=== PATIENT | female | born 1950 | race Caucasian/White ===

== ENCOUNTER 2023-06-23 22:33 | Inpatient (IN) | payer OTHER, SELFPAY ==
[2023-06-23 17:36] VITALS: BP 163/55
[2023-06-23 18:28] VITALS: BMI 29.7
[2023-06-23 18:31] VITALS: BP 153/45
[2023-06-23 18:42] LABS: % Eosinophils 3.3 % (0-6); % Immature Granulocytes 0.2 % (0-0.5); % Lymphocytes 26.3 % (20.5-51.1); % Monocytes 9.4 % (1.7-9.3); % Neutrophils 59.8 % (42.2-75.2); Absolute Basophils 0.1 10^3/uL (0-0.2); Absolute Eosinophils 0.2 10^3/uL (0-0.7); Absolute Lymphocytes 1.3 10^3/uL (1.2-3.4); Absolute Monocytes 0.5 10^3/uL (0.1-0.6); Absolute Neutrophils 2.9 10^3/uL (1.4-6.5); Hematocrit 25.6 % (37.0-47.0); Hemoglobin 7.2 g/dL (12.0-16.0); Mean Corp Hgb Conc. 28.1 g/dL (33.0-37.0); Mean Corpuscular Hgb 22.2 pg (27.0-31.0); Mean Platelet Volume 11.2 fL (7.4-10.4); Nucleated Red Blood Cells % 0 %; Platelet Count 200 10^3/uL (130-400); Red Blood Cell Count 3.24 10^6/uL (4.20-5.40); Red Cell Dist. Width 21.8 % (11.5-14.5); White Blood Cell Count 4.8 10^3/uL (4.8-10.8)
[2023-06-23 18:58] LABS: ALT (SGPT) 13 U/L (0-35); AST (SGOT) 40 U/L (14-36); Albumin 3.7 g/dl (3.5-5.0); Alkaline Phosphatase 60 U/L (38-126); Blood Urea Nitrogen 17 mg/dl (7-17); Calcium 9.5 mg/dl (8.4-10.2); Carbon Dioxide 26 mmol/L (22-30); Chloride 106 mmol/L (98-107); Estimated Creatinine Clearance 39 ml/min; Glucose 121 mg/dl (70-99); Potassium 4.4 mmol/L (3.5-5.1); Sodium 140 mmol/L (135-145); Total Bilirubin 0.3 mg/dl (0.2-1.3); eGFR 59.12
[2023-06-23 19:53] VITALS: BP 146/59
[2023-06-23 19:58] LABS: Normal RBC Morphology No
[2023-06-23 19:59] LABS: Anisocytosis 2+; Hypochromasia 3+; Macrocytosis 1+; Stomatocytes 2+
[2023-06-23 20:23] LABS: Iron 43 ug/dl (37-170)
[2023-06-23 20:31] LABS: Percent Saturation 13 % (20-50); Total Iron Binding Capacity 323 ug/dl (265-497)
[2023-06-23 20:58] LABS: Ferritin 6.2 ng/ml (11.1-264.0)
--- NOTE | 2023-06-23 21:05 | ED.GENMED ---
History of Present Illness
General
Chief Complaint: Abnormal Lab Value
Source: patient and family
Exam Limitations: other (speech impairment from previous CVA)
Time Seen by Provider: 06/23/23 19:11
Nursing documentation reviewed up to this point in time: agreed with
Travel History
Have you had any contact with someone who has COVID-19?: No
Do you have any symptoms of coronavirus? Fever > 100 degrees, chills, cough, shortness of breath, sore throat, loss of taste or smell, muscle aches, or headache?: No
History of Present Illness
History of Present Illness:
Patient with history of CVA with residual speech impairment and right-sided paralysis, presents to ED after an outpatient blood work revealed recurrent anemia. Otherwise, per family, patient has been behaving normally and they have not noticed any
big changes. However, daughter has noticed 'dark stool'. Denies recent change in medications or diet. Denies recent illness. Patient has had history of anemia requiring transfusion in the past.
Past History
Past History
ED Past Medical History: CVA (with right sided weakness and Expressive Aphasia), HTN, Hypercholesterolemia and NIDDM
ED Past Surgical History: Cardiac (Stents X 3) and (X 4)
Social History
Tobacco: Former smoker
Alcohol: None
Personal:
Living: with family
Review of Systems
Review of Systems
Allergies reviewed?: Yes
Unable to obtain full review of systems at this time due to: non-verbal
All Other Systems: Not applicable
Phy Exam
Physical Exam
Physical Exam:
Physical Exam
General: no apparent distress, not acutely ill. afebrile.
Head: nc/at. eomi
Neck: supple. no meningeal signs.
Heart: s1/s2 regular rate and rhythm, no murmur. equal radial pulses.
Lungs: no acute respiratory distress. clear bilaterally
Abdomen: normal bowel sounds. not tender. 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
Neuro: alert and oriented. impaired speech and RUE/RLE flaccidity, chronic.
Skin: no rash
Psychiatric: well kept. cooperative
Extremities: no edema.
Course
Orders/Labs/Results
Orders:
Orders
06/23/23 18:30
TANVIR Polyspecific GEL Urgent
BBK Wristband Number:
Type And Crossmatch Urgent
Complete Blood Count/With Diff Urgent
Comprehensive Metabolic Panel Urgent
Ferritin Urgent
Comment: ADD ON
Folate Urgent
Comment: ADD ON
Iron Urgent
Comment: ADD ON
Total Iron Binding Urgent
Comment: ADD ON
Vitamin B12 Urgent
Comment: ADD
06/23/23 19:12
Add On- LAB Urgent
Tests Added?: iron, ferritin, TIBC
06/23/23 21:56
Admit/Transfer Patient As Directed
Co-Sign Provider:
Level of Care: Inpatient admission
Assign to:: Telemetry
Physician / Group: bel [place]
Diagnosis: anemia concern for gi bleed
Reason for Telemetry: Arrhythmia
Date to Stop Telemetry: 06/26/23
Time to Stop Telemetry: 11:00
Reason for Hospitalization: anemia concern for gi bleed
Expected length of stay greater than two midnights?: Yes
ELOS- Estimated Length of Stay in days: 3
I certify the patient meets the requirements for IP care: Yes
Code Status As Directed
Resuscitation Status: Full Code
06/23/23 22:09
Add On- LAB Urgent
Tests Added?: b12 folate
06/23/23 23:00
Atorvastatin [Lipitor] 40 mg PO HS
06/23/23 23:22
Dextrose 50%-Water [Dextrose 50% Syringe] 12.5 grams IV [id number] PRN
Gabapentin [Neurontin] 300 mg PO TID
Glucagon [GlucaGen] 1 mg IM PRN PRN
06/23/23 23:22
Consult Gastroenterology [GASTROINTESTINAL CONSULT] Routine
Consulting Provider: Karon Alfredo
Was physician already notified: No
Reason for consult: anemia concern for gi bleed
Consult Notification Routine
Specialty to Notify: Gastroenterology
Complete Blood Count/With Diff Routine
Activity As Directed
Activity Level: With Assistance
Bedside Glucose Monitoring As Directed
Frequency: AC&HS
Comment: Change to q6h if pt on TPN, tube feeding or not eating
Intake/ Output As Directed
Frequency: Per unit guidelines
Pneumatic Compression Sleeves As Directed
Type: Knee high
Vital Signs As Directed
Frequency: Per unit guidelines
Weight As Directed
Frequency: Daily
Ot Eval And Treat Routine
Pt Eval And Treat Routine
Activity Level: With Assistance
DX Deep Vein Thrombosis Video Routine
06/24/23 Breakfast
NPO
Allow oral meds: Yes
Allow clear liquids: No
NPO with Ice Chips: No
Basic Metabolic Panel IN AM
Complete Blood Count/With Diff IN AM
Glycohemoglobin (HgbA1c) IN AM
06/24/23 07:30
Insulin Aspart Corrective Low [Novolog Flexpen-Low Resistance] See Protocol SC AC
06/24/23 08:00
Clonazepam [Klonopin] 0.5 mg PO BID
Lamotrigine [Lamictal] 150 mg PO DAILY
06/24/23 12:00
Aspirin Chewable [Low Strength Aspirin] 81 mg PO NOON
Atenolol [Tenormin] 25 mg PO NOON
Ferrous Sulfate [Feosol] 325 mg PO NOON
Sertraline HCl [Zoloft] 25 mg PO NOON
06/24/23 18:00
Pantoprazole [Protonix] 40 mg PO QPM
06/25/23 06:00
Basic Metabolic Panel IN AM
Complete Blood Count/With Diff IN AM
06/26/23 06:00
Basic Metabolic Panel IN AM
Complete Blood Count/With Diff IN AM
06/26/23 11:00
DC Protocol for Telemetry ONCE
Abnormal Lab Results
06/23/23
18:30
RBC 3.24 L 10^6/uL
(4.20-5.40)
Hgb 7.2 L g/dL
(12.0-16.0)
Hct 25.6 L %
(37.0-47.0)
MCV 79.0 L fL
(81.0-99.0)
MCH 22.2 L pg
(27.0-31.0)
MCHC 28.1 L g/dL
(33.0-37.0)
RDW 21.8 H %
(11.5-14.5)
MPV 11.2 H fL
(7.4-10.4)
Monocytes % 9.4 H %
(1.7-9.3)
Glucose 121 H mg/dl
(70-99)
% Saturation 13 L %
(20-50)
Ferritin 6.2 L ng/ml
(11.1-264.0)
AST 40 H U/L
(14-36)
Folate > 20.0 H ng/ml
(2.76-20)
Antibody Screen Positive A
(Negative)
Crossmatch IS Only See Detail
MTS Gel Crossmatch See Detail
06/23/23 18:30
06/23/23 18:30
Vital Signs
Initial and Last Documented VS:
Initial Vital Signs
Temp Pulse Resp BP Pulse Ox
98.0 F 71 18 163/55 99
06/23/23 17:36 06/23/23 17:36 06/23/23 17:36 06/23/23 17:36 06/23/23 17:36
Last Documented Vital Signs
Temp Pulse Resp BP Pulse Ox
98.2 F 73 16 141/53 97
06/24/23 02:14 06/24/23 02:14 06/24/23 02:14 06/24/23 02:14 06/24/23 02:14
MDM/Problems Addressed
MDM/Problems Addressed:
H&H noted, decreased from January 2023 when hemoglobin was 10.4. Blood transfusion consent on the chart.
GI () notfied via tigertext.
*Critical Care Note
Total Time (30-74mins, 75-104mins- exclusive of procedures): Not Applicable
ED Attending Note
-
Portions of this chart may have been created with voice recognition software.� Occasional wrong word or��sound alike� substitutions may have occurred due to the inherent limitations of voice recognition software.
Discharge Plan
Departure
Patient Disposition: Admit
Date of Disposition: 06/23/23
Time of Disposition: 21:12
Admit to: Med/Surg
Presentation/result/management discussed w/ accepting MD/DO: Hospitalist
Discharge Problem:
GI bleed, Anemia
Interventions
Interventions:
*Risk Screen - Suicide Last Done: 06/23/23 17:36
*General Assessment Last Done: 06/23/23 17:36
*Neglect/Abuse Screening Last Done: 06/23/23 17:36
ED- Fall Risk Assessment Last Done: 06/23/23 19:53
*ED COVID-19 Vaccine History Last Done: 06/23/23 23:29
*Nursing Disposition Last Done: 06/23/23 23:10
Discharge Date and Time
Discharge Date/Time: 06/23/23 23:10
--- NOTE | 2023-06-23 21:25 | HPS.HSE ---
Addendum entered and electronically signed by Haroldo Taylor DO 06/23/23 23:28:
Patient seen and examined independently. Agree with findings and plan as set forth by BLAIRE Durbin.
Patient is a 72y F with PMH significant for R weakness and aphasia s/p prior CVA, hypertension, cirrhosis, DM-II and ASCVD who presents top ED for evaluation of anemia. Family states that patient has been doing fairly well of late. She has
perhaps been somewhat more tired recently - but no other complaints. Daughter states that perhaps her stool appeared somewhat dark recently.
Patient had a complicated hospitalization in 01/2023 including heme positive stools and anemia. GI endoscopic evaluation was deferred at that time due to patient acuity / instability.
Patient had routine outpatient labs done yesterday and was called today noting that Hgb was 6.8 g/dL.
Ass:
Iron Deficiency Anemia
Heme Positive Stool
Benign Hypertension
ASCVD
R Hemiparesis / Expressive Aphasia as Late Effect of CVA
DM-II
Bipolar Disorder
Cirrhosis - ? Etiology
Plan:
Admit for further evaluation and treatment.
Type and Screen performed and antibodies noted.
Blood consent on the chart.
Iron studies noted and will begin IV iron regimen.
Follow H&H and monitor for any new / increased bleeding.
GI evaluation for possible endoscopic examination(s).
Follow for any new symptoms / complaints.
Hold Plavix. Continue ASA given intravascular stent.
Hold metformin.
Continue usual outpatient medication otherwise.
Addendum entered and electronically signed by BLAIRE Durbin 06/23/23 23:10:
anemia:
iron sat 135 ferritin 6.2
-Will give IV Ferrlecit
-If hemoglobin continues to drop may transfuse 1 unit will need order for crossmatch
Original Note:
Family Physician
-
Family Physician: Kameron Garibay
Chief Complaint
-
Anemia on outpatient lab work
History of Present Illness
72-year-old female who had outpatient lab work showing anemia. Her daughter does report noticing some dark stool but denies any changes in diet or intake. Her stool was noted to be dark brown heme positive. The patient is aphasic but does shake
head yes and make movement that she has been tired with some dyspnea on exertion according to her aide at bedside. She denies fever, chills, chest pain, palpitations, shortness breath, cough, abdominal pain, nausea, vomiting, diarrhea, urinary
symptoms. During her admission in January she was noted to be anemic 7.5 with trace heme positive stools during that time due to patient's sepsis, shock and bacteremia she did not have any scope recommended by GI at that time.
PMH DM2, CVA with right hemiplegia as well as aphasia in 2007 postcardiac cath in [place], HTN, HLD, CAD status post PCI 2007, bipolar disorder, anxiety,sepsis with obstructing ureteral calculi hydronephrosis January 2023, history urine cultures
grew E. coli 01/2023, history of vent dependent respiratory failure requiring intubation extubation on 01/09, history of cirrhosis and severe pancreatic lipomatosis on CT January 2023
Medical History
Past Medical History
Past Medical History: Reports Other
Additional Past Medical History:
DM2
CVA with right hemiplegia as well as aphasia in 2007 postcardiac cath in [place]
CAD status post PCI 2008 stent x 3
HTN
HLD
bipolar disorder, anxiety
,sepsis with obstructing ureteral calculi hydronephrosis January 2023
history urine cultures grew E. coli 01/2023,
history of vent dependent respiratory failure requiring intubation extubation on 01/09
history of cirrhosis and severe pancreatic lipomatosis on CT January 2023
Past Surgical History: Reports Other ( section x 4, cardiac stent times 06/2007,Cystoscopy and right stent placement on 01/05/2023)
Social History
Tobacco: Former Smoker (Quit 2007)
Alcohol: None
Drug: None
Personal: Single
Living: With Family (Has 24-hour caretakers)
Employment: Disabled
Family History
Family History: Other (Father DM 2, brother [place], Hx DM2)
Allergies / Home Medications
Allergies reflects when Allergies were last updated in [employer].
Home Medications with original date entered in [employer]
Allergy/Medication List:
Allergies
Allergy/AdvReac Type Severity Reaction Status Date / Time
No Known Allergies Allergy Verified 06/23/23 17:39
Home Medications
aspirin 81 mg chewable tablet 81 mg PO NOON Blood clot prevention/tx 04/22/21
atenolol 25 mg tablet 25 mg PO NOON Blood pressure 04/22/21
clonazepam 0.5 mg tablet 0.5 mg PO BID Mental Health/Anxiety 04/22/21
clopidogrel 75 mg tablet 75 mg PO DAILY Blood clot prevention/tx 04/22/21
docosahexaenoic acid (dha)-epa 120 mg-180 mg capsule 1 cap PO NOON Supplement 04/22/21
ferrous sulfate 325 mg (65 mg iron) tablet (FeroSul) 325 mg PO NOON Supplement 04/22/21
gabapentin 300 mg capsule 300 mg PO TID Mental Health/Anxiety 04/22/21
lamotrigine 150 mg tablet (Lamictal) 150 mg PO DAILY Mental Health/Anxiety 04/22/21
omeprazole 20 mg capsule,delayed release 20 mg PO QPM Gastrointestinal issue 04/22/21
simvastatin 80 mg tablet 80 mg PO HS High cholesterol 04/22/21
metformin 1,000 mg tablet 1,000 mg PO BID@0700,1800 Diabetes 01/05/23
mv-min-vit C 250 jy-xggdyl-ioitn HCl-herb 124 12.5 mg chewable tablet (Immune Support) 1 tab PO QPM Supplement 01/05/23
sertraline 25 mg tablet 25 mg PO NOON Mental Health/Anxiety 01/05/23
methenamine hippurate 1 gram tablet (Hiprex) 1 g PO DAILY 06/23/23
Review of Systems
-
History Source: Patient and Family (Daughter and aide at bedside)
A 12 point ROS was completed and negative except as noted: Yes
Constitutional: Reports Fatigue and Other (Chronic aphasia from CVA 2007); Denies Fever
EENT: Denies Sore Throat or Runny Nose
Respiratory: Reports Trouble Breathing (WOO); Denies Cough
Cardiac: Denies Chest Pain, Diaphoresis, Palpitations or Syncope
Abdomen/GI: Reports Other (Dark brown stools); Denies Abdominal Pain, Nausea, Vomiting, Diarrhea, Constipated, Bloody Stools or Black Stools
: Denies Dysuria, Frequency, Flank Pain, Incontinence or Difficulty Voiding
Musculoskeletal: Denies Joint Pain or Edema
Skin: Denies Itching or Rash
Neurological: Denies Dizzy, Headache or Weakness
Endocrine: Reports No Symptoms
Hematologic/Lymphatic: Reports No Symptoms
Psych: Reports Calm
Physical Exam
Vital Signs
Vital Signs
Temp Pulse Resp BP Pulse Ox
98.0 F 67 18 146/59 97
06/23/23 17:36 06/23/23 19:53 06/23/23 19:53 06/23/23 19:53 06/23/23 19:53
Physical Exam
General: Comfortable, Conversant and Other (Chronic profound expressive aphasia from CVA 2007, patient is able to understand language)
HEENT: NormoCephalic, Anicteric, PERRLA, No Ptosis and Other (Pale conjunctiva)
Respiratory: Clear; No Wheezes, Rales or Rhonchi
Cardiac: S1/S2 and Regular Rhythm; No Murmur, Rub, Gallop or Peripheral Edema
Breast: Deferred by me
GI: Soft, Non Tender, Non Distended, Normal Bowel Sounds and No Hepatosplenomegaly
Rectal: Deferred by Provider
Genito-urinary: Deferred by me
Musculoskeletal: No Clubbing, No Cyanosis and No Edema
Skin: Warm and Dry; No Rash
Neuro: Other (Chronic profound expressive aphasia from CVA 2007, patient is able to understand language); No Facial Droop or Tremors
Psych: Calm
Laboratory Results
-
06/23/23 18:30
06/23/23 18:30
Laboratory Results
Total Bilirubin 0.3 mg/dl (0.2-1.3) 06/23/23 18:30
AST 40 U/L (14-36) H 06/23/23 18:30
ALT 13 U/L (0-35) 06/23/23 18:30
Alkaline Phosphatase 60 U/L (38-126) 06/23/23 18:30
Data Reviewed
-
Lab Data: Labs Reviewed by me
Impression/Plan
-
Impression/plan:
Admit to telemetry
#Acute on chronic anemia -microcytic concern for possible GI bleed
Hgb 7.2 was 10.4 January 14, 2023 status post 4 units blood transfusion during hospital stay
-Consult GI
-Type and screen-patient with multiple antibodies according to blood bank
-IV PPI
-Check iron panel, B12, folate
#HTN�benign
BP 146/59
Continue atenolol 25 mg
Hold SBP less than 110
#HLD
-Continue Zocor 80 mg at bedtime
#history of cirrhosis and severe pancreatic lipomatosis on CT January 2023
#CVA with right hemiplegia/Chronic aphasia 2007 cva during stent placement
-Hold aspirin
-hold Plavix
#DM2
Accu-Cheks with SSI, check HgbA1c
Metformin 1000 mg twice daily hold
#CAD status post PCI 2007
-Continue atenolol cont asa
#Bipolar disorder/anxiety
-Continue Klonopin 0.5 mg twice daily, Lamictal 150 mg daily, Zoloft 25 mg at noon, gabapentin 300 mg 3 times daily
#Hx sepsis with obstructing ureteral calculi hydronephrosis January 2023
#history urine cultures grew E. coli 01/2023
#history of vent dependent respiratory failure requiring intubation extubation on 01/09/2023
#Chronic ambulatory dysfunction
Patient stands to wheelchair only
#Obesity due to excess calorie consumption�BMI 29.7 kg
DVT prophylaxis
SCDs
Full code
[2023-06-23 23:47] VITALS: BP 188/63; BMI 27.9
[2023-06-23 23:59] LABS: Glucose - Point of Care 130 mg/dl (70-99)
[2023-06-24] VITALS (12 sets, daily range): BP systolic 138–180; BP diastolic 52–74; PULSE 63–68; O2SAT 98
[2023-06-24] MEDS: LIPITOR 40 MG PO ×2 (00:21→21:08)
[2023-06-24] MEDS: NEURONTIN 300 MG PO ×4 (00:21→21:08)
[2023-06-24] MEDS: NSS 1000 IV (00:21)
[2023-06-24 00:33] LABS: Folate > 20.0 ng/ml (2.76-20); Vitamin B12 339 pg/ml (239-931)
[2023-06-24 00:42] LABS: % Basophils 0.9 % (0-2); % Eosinophils 2.7 % (0-6); % Immature Granulocytes 0.2 % (0-0.5); % Lymphocytes 33.8 % (20.5-51.1); % Monocytes 9.8 % (1.7-9.3); % Neutrophils 52.6 % (42.2-75.2); Absolute Eosinophils 0.1 10^3/uL (0-0.7); Absolute Lymphocytes 1.5 10^3/uL (1.2-3.4); Absolute Monocytes 0.4 10^3/uL (0.1-0.6); Absolute Neutrophils 2.3 10^3/uL (1.4-6.5); Mean Corp Hgb Conc. 27.5 g/dL (33.0-37.0); Mean Platelet Volume 11.5 fL (7.4-10.4); Nucleated Red Blood Cells % 0 %; Platelet Count 165 10^3/uL (130-400); Red Cell Dist. Width 21.6 % (11.5-14.5); White Blood Cell Count 4.4 10^3/uL (4.8-10.8)
[2023-06-24 00:46] LABS: Hemoglobin 6.6 g/dL (12.0-16.0)
[2023-06-24 01:44] LABS: Hepatitis C Antibody Negative (Negative)
[2023-06-24] MEDS: BENADRYL 25 MG IV (02:52)
[2023-06-24 06:10] LABS: Glucose - Point of Care 106 mg/dl (70-99)
--- NOTE | 2023-06-24 08:47 | W.PN.HOSP.TC ---
Today's Communication/Plan
-
Blood transfusion. Monitor hemoglobin. IV Protonix. Plan for EGD on Tuesday.
Assessment / Plan
Assessment / Plan
Physical exam:
General: Well Developed, Well Nourished and No Apparent Distress
HEENT: Normocephalic, Atraumatic and Moist Mucous Membranes
Respiratory: Clear to Auscultation; Negative Wheezes, Rales or Rhonchi
Cardiac: Regular Rhythm and S1/S2
GI: Soft, Nontender and Nondistended
Musculoskeletal: No Clubbing, No Cyanosis and No Edema
Neuro: Awake, Alert and Oriented, expressive aphasia present, right-sided hemiparesis.
Psych: Calm
A/P:
#Acute on chronic anemia:
-Status post blood transfusion
-PPI twice daily
-GI consult appreciated (discussed with GI today)
-Plan for upper endoscopy on Tuesday
-Continue to hold Plavix
-Might consider colonoscopy down the road but await for EGD results first.
-Hemoglobin 7.9
-Updated daughter today, Dolores
#Dysphagia
-Will start on IDDSI-4 and have speech therapy for swallow eval
#CVA with right hemiplegia/Chronic aphasia 2007 cva during stent placement
-Resume aspirin 81 mg daily
-Continue to hold Plavix
-Continue atorvastatin 40 mg p.o. nightly
#Concern for cirrhosis
-Appropriate workup will be performed by GI for further evaluation
#HTN�benign
BP in the high side
Continue atenolol 25 mg with holding parameters
Add IV hydralazine as needed for better BP control and will reeval
#HLD
-Continue Zocor 80 mg at bedtime
#history of cirrhosis and severe pancreatic lipomatosis on CT January 2023
#DM2
Accu-Cheks with SSI, check HgbA1c
Metformin 1000 mg twice daily to resume
#CAD status post PCI 2007
-Continue atenolol cont asa
#Bipolar disorder/anxiety
-Continue Klonopin 0.5 mg twice daily, Lamictal 150 mg daily, Zoloft 25 mg at noon, gabapentin 300 mg 3 times daily
#Hx sepsis with obstructing ureteral calculi hydronephrosis January 2023
#history urine cultures grew E. coli 01/2023
#history of vent dependent respiratory failure requiring intubation extubation on 01/09/2023
#Chronic ambulatory dysfunction
Patient stands to wheelchair only
#Obesity due to excess calorie consumption�BMI 29.7 kg
DVT prophylaxis
SCDs
Full code
Anticipated Discharge: > 48 hours
Subjective/Interval History
-
Date of Service: June 24, 2023
Patient seen and examined. No new complaints but limited history due to expressive aphasia.
Objective Data
-
Labs:
Laboratory Results
06/24/23 06/24/23
00:32 08:06
WBC 4.4 L Pending
Hgb 6.6 L* Pending
Hct 24.0 L Pending
Plt Count 165 Pending
Sodium Pending
Potassium Pending
Chloride Pending
Carbon Dioxide Pending
BUN Pending
Creatinine Pending
Glucose Pending
Calcium Pending
Vital Signs:
Vital Signs
Temp Pulse Resp BP Pulse Ox
97.9 F 70 18 154/59 96
06/24/23 07:30 06/24/23 07:30 06/24/23 07:30 06/24/23 07:30 06/24/23 07:30
I&O
06/23/23 06/24/23 06/25/23
06:59 06:59 06:59
Intake Total 250 / 250
Balance 250 / 250
[2023-06-24 09:04] LABS: % Eosinophils 3.6 % (0-6); % Immature Granulocytes 0.5 % (0-0.5); % Lymphocytes 28.5 % (20.5-51.1); % Monocytes 10.5 % (1.7-9.3); % Neutrophils 55.9 % (42.2-75.2); Absolute Eosinophils 0.2 10^3/uL (0-0.7); Absolute Lymphocytes 1.2 10^3/uL (1.2-3.4); Absolute Monocytes 0.4 10^3/uL (0.1-0.6); Absolute Neutrophils 2.3 10^3/uL (1.4-6.5); Hematocrit 26.7 % (37.0-47.0); Hemoglobin 7.9 g/dL (12.0-16.0); Mean Corp Hgb Conc. 29.6 g/dL (33.0-37.0); Mean Corpuscular Hgb 23.5 pg (27.0-31.0); Mean Corpuscular Volume 79.5 fL (81.0-99.0); Mean Platelet Volume 10.9 fL (7.4-10.4); Nucleated Red Blood Cells % 0 %; Platelet Count 178 10^3/uL (130-400); Red Blood Cell Count 3.36 10^6/uL (4.20-5.40); White Blood Cell Count 4.2 10^3/uL (4.8-10.8)
[2023-06-24 09:45] LABS: Blood Urea Nitrogen 18 mg/dl (7-17); Calcium 9.1 mg/dl (8.4-10.2); Carbon Dioxide 26 mmol/L (22-30); Chloride 108 mmol/L (98-107); Estimated Creatinine Clearance 54 ml/min; Glucose 96 mg/dl (70-99); Sodium 140 mmol/L (135-145); eGFR > 60.00
--- NOTE | 2023-06-24 09:51 | CON.GI ---
Addendum entered and electronically signed by Karon Alfredo MD 06/24/23 12:55:
I saw and examined the patient.
The ACCOUNTANT CONTROLLER's note was reviewed and I agree with the note.
72 yo female with a PMH significant for CVA with expressive aphasia, right hemiplegia and ambulatory dysfunction, CAD status post 3 cardiac stents on ASA and plavix, hypertension, hyperlipidemia, diabetes, anxiety, depression, anemia, who presents
to the hospital due to abnormal outpatient labs showing a low hemoglobin and iron studies. We are being asked to evaluate for anemia with concern for GI bleed.� Interval history noted above, with admission in the fall for septic shock requiring ICU
level of care for obstructive uropathy secondary to renal calculi requiring ureteral stenting.� At that time had been anemic but workup was deferred due to acuity of illness.� She had also had outpatient GI workup in the past for anemia and was
deemed too high risk for procedures by her outpatient GI doctor.� She now presents again with recurrent anemia with dark heme positive stool.� She is on aspirin and Plavix for history of CVA and CAD with stenting.� She did have a significant stroke
in the past with expressive aphasia and ambulatory dysfunction.� Noted with hemoglobin of 6.6, transfused with 1 unit of packed red blood cells with hemoglobin improvement to 7.9.� Currently with no active signs of bleeding.� Her Plavix was placed
on hold.� She was placed on PPI daily. ?dx of cirrhosis per CT imaging with no prior work-up. She does not drink alcohol. Hep C negative.
Problem list:
-Recurrent iron deficiency anemia
-Dark brown, heme positive stool
-Prior CT imaging showing cirrhosis-liver function/platelet normal
-History of CAD with stenting on aspirin and Plavix
-History of CVA with expressive aphasia and right hemiplegia
-Acute on chronic microcytic anemia
-History of vitamin B12 deficiency
plan
Continue monitor H&H
advance diet
PPI bid
iron supplementation
Daughter is agreeable for EGD. Will plan on Tuesday after Plavix washout
Will get ultrasound abdomen to evaluate prior CT finding of liver cirrhosis
Original Note:
Consultation
-
Date/Time Consultation Requested: 06/23/23 @ 23:22
Date/Time Consultation Performed: 06/24/23 @ 10:00
Requesting Provider: BLAIRE Durbin
Performing Provider: BLAIRE Feliz; Dr. Alfredo
Reason for Consultation: anemia concern for gi bleed
Medical History
Chief Complaint / HPI
Chief Complaint: anemia on outpatient blood work
History of Present Illness:
The pt is a 72 yo female with a PMH significant for CVA with expressive aphasia, right hemiplegia and ambulatory dysfunction, CAD status post 3 cardiac stents on ASA and plavix, hypertension, hyperlipidemia, diabetes, anxiety, depression, iron
deficiency anemia, who presents to the hospital due to abnormal outpatient labs showing a low hgb and iron deficiency. We are being asked to evaluate for anemia with concern for GI bleed. The patient is unable to provide much history due to her
expressive aphasia, therefore the medical record was utilized and I also did speak to her daughter and on the phone. Upon review of prior records, the patient was seen here in the fall with sepsis secondary to obstructive renal calculi, having to
undergo urgent urology evaluation with stent placement. She was treated for septic shock in the ICU where she was on pressors and required intubation. At that time she did have anemia with brown heme positive stool. She did have a history of
underlying vitamin B12 deficiency and had been on supplementation along with oral iron at that time. She did receive blood transfusions during her admission. Her Plavix was held temporarily and she was placed on twice daily PPI. Due to her
critically ill state endoscopic evaluation was deferred. She had also been deemed high risk for colonoscopy as an outpatient and had been undergoing occult blood testing every year. Today her daughter reports that she had received a call from her
outpatient doctor stating that her mother had a low hemoglobin and low iron levels. She notes she was advised to go to the emergency room for further evaluation. She admits that her mother has been complaining of on and off again abdominal
discomfort and has recently been having darker stool. She notes that her stools are on the looser side with intermittently small formed stools. She notes that this is likely due to her diet. She denies any bright red blood per rectum, but notes
she has a history of hemorrhoids and was told that she had some bleeding from this in the past. She had seen a GI doctor in the past but was deemed too high risk for colonoscopy secondary to her stroke. She notes that her mother eats well on a
regular basis and does not complain much. She denies any signs of nausea or vomiting. She does note that her mother did seem a little bit more tired and pale than usual prior to admission. She notes that she is on a regular diet and tolerates
this. She is on aspirin and Plavix, and she believes her last dose was taken on Tuesday evening. She reports that her mother does not drink alcohol, has never used drugs, and does not smoke currently. She reports remote history of EGD and
colonoscopy, but is unsure of the results. Her daughter notes that she was not aware of the CT findings concerning for cirrhosis upon her last admission. Hemoglobin on admission was 7.2 which did drop subsequently to 6.6. She did receive 1 unit of
packed red blood cells with improvement of the hemoglobin to 7.9. Other pertinent lab findings include platelets 200,000, WBC 4.8, sodium 140, potassium 4.4, BUN 817, creatinine 1.0, serum iron 43, iron saturation 13, ferritin 6.2, total bilirubin
0.3, AST 40, ALT 13, alk phos 60, vitamin B12 339, folate greater than 20. She was started on IV iron, daily PPI, and IV fluids, made n.p.o., admitted for further evaluation by GI. Rectal exam in the emergency room showed dark brown heme positive
stool.
Past Medical History
Past Medical History: CAD (With multiple heart stents), CVA (Severe expressive aphasia, right-sided hemiplegia, ambulatory dysfunction), GERD, HTN, Hypercholesterolemia, NIDDM, Psychiatric (Anxiety/depression) and Other (Vitamin B12 deficiency, iron
deficiency, history of obstructing kidney stones with hydronephrosis)
Past Surgical History: Cardiac (Cardiac stent), Cholecystectomy, and Urological (Cystoscopy with ureteral stent placement and removal)
Social History
Tobacco: Former Smoker
Alcohol: None
Drug: None
Personal:
Living: With Family
Family History
Family History: Reviewed & Not Pertinent
Allergies / Home Medications
Allergy/AdvReac Type Severity Reaction Status Date / Time
No Known Allergies Allergy Verified 06/23/23 17:39
Medication Instructions Recorded
aspirin 81 mg chewable tablet 81 mg PO NOON Blood clot 04/22/21
prevention/tx
atenolol 25 mg tablet 25 mg PO NOON Blood pressure 04/22/21
clonazepam 0.5 mg tablet 0.5 mg PO BID Mental Health/Anxiety 04/22/21
clopidogrel 75 mg tablet 75 mg PO DAILY Blood clot 04/22/21
prevention/tx
docosahexaenoic acid (dha)-epa 120 1 cap PO NOON Supplement 04/22/21
mg-180 mg capsule
ferrous sulfate 325 mg (65 mg 325 mg PO NOON Supplement 04/22/21
iron) tablet (FeroSul)
gabapentin 300 mg capsule 300 mg PO TID Mental Health/Anxiety 04/22/21
lamotrigine 150 mg tablet 150 mg PO DAILY Mental 04/22/21
(Lamictal) Health/Anxiety
omeprazole 20 mg capsule,delayed 20 mg PO QPM Gastrointestinal issue 04/22/21
release
simvastatin 80 mg tablet 80 mg PO HS High cholesterol 04/22/21
metformin 1,000 mg tablet 1,000 mg PO BID@0700,1800 Diabetes 01/05/23
mv-min-vit C 250 vj-nufnjr-rzvdn 1 tab PO QPM Supplement 01/05/23
HCl-herb 124 12.5 mg chewable
tablet (Immune Support)
sertraline 25 mg tablet 25 mg PO NOON Mental Health/Anxiety 01/05/23
methenamine hippurate 1 gram 1 g PO DAILY Infection 06/23/23
tablet (Hiprex)
Review of Systems
-
History Source: Family
Constitutional: Reports Fatigue
EENT: Reports No Symptoms
Respiratory: Reports No Symptoms
Cardiac: Reports No Symptoms
Abdomen/GI: Reports Abdominal Pain and Diarrhea (Dark loose stools)
: Reports No Symptoms
Musculoskeletal: Reports Other (Ambulatory dysfunction)
Skin: Reports No Symptoms
Neurological: Reports No Symptoms
Vital Signs
Temp Pulse Resp BP Pulse Ox
97.9 F 70 18 154/59 96
06/24/23 07:30 06/24/23 07:30 06/24/23 07:30 06/24/23 07:30 06/24/23 07:30
Physical Exam
Exam
General: Well Developed, Well Nourished and No Apparent Distress
HEENT: Normocephalic, Anicteric and Atraumatic
Respiratory: Clear
Cardiac: S1/S2 and Regular Rhythm
Breast: Deferred by me
GI: Soft, Non Tender, Non Distended and Normal Bowel Sounds
Rectal: Deferred by Provider and Other (Dark brown, heme positive per ER)
Musculoskeletal: No Edema
Neuro: Awake, Alert and Other (+ Expressive aphasia)
Psych: Calm
Results
WBC 4.2 10^3/uL (4.8-10.8) L 06/24/23 08:06
Hgb 7.9 g/dL (12.0-16.0) L 06/24/23 08:06
Hct 26.7 % (37.0-47.0) L 06/24/23 08:06
MCV 79.5 fL (81.0-99.0) L 06/24/23 08:06
Plt Count 178 10^3/uL (130-400) 06/24/23 08:06
Absolute Neuts (auto) 2.3 10^3/uL (1.4-6.5) 06/24/23 08:06
Sodium 140 mmol/L (135-145) 06/24/23 08:06
Potassium 4.0 mmol/L (3.5-5.1) 06/24/23 08:06
Chloride 108 mmol/L (98-107) H 06/24/23 08:06
Carbon Dioxide 26 mmol/L (22-30) 06/24/23 08:06
BUN 18 mg/dl (7-17) H 06/24/23 08:06
Creatinine 0.7 mg/dL (0.6-1.0) 06/24/23 08:06
Calcium 9.1 mg/dl (8.4-10.2) 06/24/23 08:06
Total Bilirubin 0.3 mg/dl (0.2-1.3) 06/23/23 18:30
AST 40 U/L (14-36) H 06/23/23 18:30
ALT 13 U/L (0-35) 06/23/23 18:30
Alkaline Phosphatase 60 U/L (38-126) 06/23/23 18:30
Hepatitis C Antibody Negative (Negative) 06/24/23 00:32
Prior GI Procedures:
EGD: Per daughter remote history of EGD, unclear results
Colonoscopy:�Per daughter remote history of colonoscopy, unclear result
Assessment / Plan
-
The pt is a 72 yo female with a PMH significant for CVA with expressive aphasia, right hemiplegia and ambulatory dysfunction, CAD status post 3 cardiac stents on ASA and plavix, hypertension, hyperlipidemia, diabetes, anxiety, depression, anemia,
who presents to the hospital due to abnormal outpatient labs showing a low hemoglobin and iron studies. We are being asked to evaluate for anemia with concern for GI bleed. Interval history noted above, with admission in the fall for septic shock
requiring ICU level of care for obstructive uropathy secondary to renal calculi requiring ureteral stenting. At that time had been anemic but workup was deferred due to acuity of illness. She had also had outpatient GI workup in the past for
anemia and was deemed too high risk for procedures by her outpatient GI doctor. She now presents again with recurrent anemia with dark heme positive stool. She is on aspirin and Plavix for history of CVA and CAD with stenting. She did have a
significant stroke in the past with expressive aphasia and ambulatory dysfunction. Noted with hemoglobin of 6.6, transfused with 1 unit of packed red blood cells with hemoglobin improvement to 7.9. Currently with no active signs of bleeding. Her
Plavix was placed on hold. She was placed on PPI daily. ?dx of cirrhosis per CT imaging with no prior work-up. She does not drink alcohol. Hep C negative.
Problem list:
-Recurrent iron deficiency anemia
-Dark brown, heme positive stool
-Prior CT imaging showing cirrhosis
-History of CAD with stenting on aspirin and Plavix
-History of CVA with expressive aphasia and right hemiplegia
-Acute on chronic microcytic anemia
-History of vitamin B12 deficiency
Other pertinent medical history:
-Hypertension
-Hyperlipidemia
-DM2
-Anxiety/depression
Recommendations:
-Etiology of recurrent iron deficiency anemia possibly secondary to GI source of blood loss with dark heme positive stool (PUD versus AVMs versus portal hypertensive gastropathy exacerbated with antiplatelet v other). No recent EGD or colonoscopy
for evaluation.
-At this time would continue to hold Plavix
-Okay to continue aspirin
-Will need eventual EGD for further evaluation after Plavix washout. Tentatively plan for EGD on Tuesday-discussed with the patient's daughter Angela and who is agreeable. To review with Dr. Alfredo.
-OK for diet today, TT sent to hospitalist (may need speech eval first)
-Pending EGD, to consider inpatient colonoscopy although I feel this may be difficult given the patient's history of stroke and immobility
-Trend H&H and transfuse for hemoglobin less than 7
-Will increase PPI to twice daily
-Started on IV iron by medical team
-If she has any overt or gross signs of bleeding, to consider endoscopic evaluation sooner
-Also with CT imaging in the past showing concern for cirrhosis. She does not appear decompensated at this time and her platelet count is normal. Unlikely to have variceal bleeding.
-Will add INR, hepatitis serologies, and autoimmune liver labs.
-She will need further workup outpatient in regards to her liver.
-Will follow
-
-
Thank you for consultation and allowing me to participate in the patient's care. Please call the telephone plant power operator GI physician during the after hours with any questions or concerns.
[2023-06-24] MEDS: LAMICTAL 150 MG PO (10:00)
[2023-06-24] MEDS: KLONOPIN 0.5 MG PO ×2 (10:01→21:08)
[2023-06-24 12:04] LABS: Glucose - Point of Care 105 mg/dl (70-99)
--- NOTE | 2023-06-24 12:14 | PTOTSP ---
Speech therapy
Presentation: Patient has a hx of expressive aphasia from previous CVA. In addition, patient appears to speak only Barbadian (limited). Patient was able to follow commands and uses gestures to communicate.
Per RN, patient's daughter shared that patient has been tolerating regular consistency solids and thin liquids prior to admission.
Swallowing Function: PRODUCTION SPECIALIST assisted and observed patient with several bites of puree solids, mechanical soft solids, and regular consistency solids in addition to several sips of thin liquids in which patient appeared to tolerate as she did not
exhibit any overt clinical s/sx of aspiration or difficulty with mastication/ manipulation.
Per RN, patient tolerated medications whole with thin liquids.
Recommendations:
1) Diet upgrade to regular consistency solids and thin liquids
2) Standard aspiration precautions
3) Medications as tolerated
4) Consider assistance and supervision with PO to ensure safety and assist with feeding
Plan: PRODUCTION SPECIALIST will continue to follow; pending hospitalization.
[2023-06-24 12:23] LABS: Glycohemoglobin (HgbA1c) 5.2 % (4.0-5.6)
[2023-06-24 12:46] LABS: INR 1.17; PT 14.8 Sec (11.4-14.6)
[2023-06-24] MEDS: NOVOLOG FLEXPEN-LOW RESISTANCE SC ×2 (13:10→18:10)
[2023-06-24] MEDS: TENORMIN 25 MG PO (13:11)
[2023-06-24] MEDS: LOW STRENGTH ASPIRIN 81 MG PO (13:11)
[2023-06-24] MEDS: FERRLECIT 110 MG IV (13:11)
[2023-06-24] MEDS: ZOLOFT 25 MG PO (13:11)
[2023-06-24] MEDS: FEOSOL 325 MG PO (13:11)
[2023-06-24] MEDS: NSS IV (13:19)
[2023-06-24 13:22] LABS: Hepatitis B Surface Antigen Negative (Negative)
[2023-06-24 13:39] LABS: Hepatitis B Core Ab, Total Negative (Negative)
[2023-06-24] MEDS: HIPREX 1 GRAM PO (13:44)
[2023-06-24 14:04] LABS: Hepatitis A Antibody, Total Positive (Negative)
--- NOTE | 2023-06-24 14:09 | PTCARENOTE ---
Patient awake, alert and nods head yes or no to questions. Patient will verbalize 'Banto Banto' repeatedly. Sometimes she will say yes or no. Patient has no c/o pain and is able to tell staff when she is incontinent or has to use the BSC. OOB with
assist to stand and pivot to BSC. Call stein in reach. Diet advance to thin liquids and puree (eats regular diet home).
[2023-06-24 16:01] LABS: Hepatitis B Surface Antibody Indeterminate
[2023-06-24 16:19] LABS: Hematocrit 29.2 % (37.0-47.0); Hemoglobin 8.5 g/dL (12.0-16.0)
[2023-06-24] MEDS: GLUCOPHAGE 1000 MG PO (16:47)
[2023-06-24] MEDS: APRESOLINE 10 MG IV (16:47)
[2023-06-24 18:09] LABS: Glucose - Point of Care 106 mg/dl (70-99)
[2023-06-24] MEDS: PROTONIX 40 MG PO (21:08)
[2023-06-24 21:35] LABS: Glucose - Point of Care 80 mg/dl (70-99)
[2023-06-25] VITALS (8 sets, daily range): BP systolic 121–153; BP diastolic 47–59; BMI 28.3
[2023-06-25 06:32] LABS: % Basophils 1.1 % (0-2); % Eosinophils 2.5 % (0-6); % Immature Granulocytes 0.4 % (0-0.5); % Lymphocytes 27.8 % (20.5-51.1); % Monocytes 8.5 % (1.7-9.3); % Neutrophils 59.7 % (42.2-75.2); Absolute Basophils 0.1 10^3/uL (0-0.2); Absolute Eosinophils 0.1 10^3/uL (0-0.7); Absolute Lymphocytes 1.3 10^3/uL (1.2-3.4); Absolute Monocytes 0.4 10^3/uL (0.1-0.6); Absolute Neutrophils 2.8 10^3/uL (1.4-6.5); Hematocrit 28.7 % (37.0-47.0); Hemoglobin 8.4 g/dL (12.0-16.0); Mean Corp Hgb Conc. 29.3 g/dL (33.0-37.0); Mean Corpuscular Hgb 23.2 pg (27.0-31.0); Mean Corpuscular Volume 79.3 fL (81.0-99.0); Mean Platelet Volume 10.5 fL (7.4-10.4); Nucleated Red Blood Cells % 0 %; Platelet Count 196 10^3/uL (130-400); Red Blood Cell Count 3.62 10^6/uL (4.20-5.40); Red Cell Dist. Width 20.6 % (11.5-14.5); White Blood Cell Count 4.7 10^3/uL (4.8-10.8)
[2023-06-25 06:56] LABS: Blood Urea Nitrogen 17 mg/dl (7-17); Calcium 9.3 mg/dl (8.4-10.2); Carbon Dioxide 25 mmol/L (22-30); Chloride 108 mmol/L (98-107); Estimated Creatinine Clearance 64 ml/min; Glucose 95 mg/dl (70-99); Sodium 141 mmol/L (135-145); eGFR > 60.00
[2023-06-25] MEDS: GLUCOPHAGE PO (08:30)
[2023-06-25 08:59] LABS: Glucose - Point of Care 72 mg/dl (70-99)
[2023-06-25] MEDS: NOVOLOG FLEXPEN-LOW RESISTANCE SC ×2 (09:05→17:14)
[2023-06-25] MEDS: KLONOPIN 0.5 MG PO ×2 (09:06→22:02)
[2023-06-25] MEDS: PROTONIX 40 MG PO ×2 (09:06→22:02)
[2023-06-25] MEDS: LAMICTAL 150 MG PO (09:06)
[2023-06-25] MEDS: HIPREX 1 GRAM PO (09:06)
[2023-06-25] MEDS: NEURONTIN 300 MG PO ×3 (09:06→22:02)
[2023-06-25] MEDS: FLUSH (NSS) 1 FLUSH IV (09:07)
--- NOTE | 2023-06-25 09:35 | W.PN.HOSP.TC ---
Addendum entered and electronically signed by Ambrocio Mayers MD 06/25/23 14:47:
Correction for EGD on Tuesday
Reviewed speech therapy recommendations and will place on regular diet will be n.p.o. after midnight on Tuesday
Original Note:
Today's Communication/Plan
-
For EGD today
Continue to monitor H&H
Monitor Accu-Cheks
Blood pressure management
For speech therapy evaluation
Assessment / Plan
Assessment / Plan
Physical exam:
General: Well Developed, Well Nourished and No Apparent Distress
HEENT: Normocephalic, Atraumatic and Moist Mucous Membranes
Respiratory: Clear to Auscultation; Negative Wheezes, Rales or Rhonchi
Cardiac: Regular Rhythm and S1/S2
GI: Soft, Nontender and Nondistended
Musculoskeletal: No Clubbing, No Cyanosis and No Edema
Neuro: Awake, Alert and Oriented, expressive aphasia present, right-sided hemiparesis.
Psych: Calm
A/P:
#Acute on chronic anemia:
-Status post blood transfusion
-PPI twice daily
-GI consult appreciated (discussed with GI today)
-Plan for upper endoscopy
-Continue to hold Plavix
-Might consider colonoscopy down the road but await for EGD results first.
-Hemoglobin 7.9>> 8.4
-Updated daughter today, Dolores
#Dysphagia
-Will start on IDDSI-4 and have speech therapy for swallow eval
#CVA with right hemiplegia/Chronic aphasia 2008 cva during stent placement
-Resume aspirin 81 mg daily
-Continue to hold Plavix
-Continue atorvastatin 40 mg p.o. nightly
#Concern for cirrhosis
-Appropriate workup will be performed by GI for further evaluation
#HTN�benign
BP in the high side
Continue atenolol 25 mg with holding parameters
Add IV hydralazine as needed for better BP control and will reeval
#HLD
-Continue Zocor 80 mg at bedtime
#history of cirrhosis and severe pancreatic lipomatosis on CT January 2023
#DM2
Accu-Cheks with SSI, check HgbA1c
Metformin 1000 mg twice daily to resume
#CAD status post PCI 2007
-Continue atenolol cont asa
#Bipolar disorder/anxiety
-Continue Klonopin 0.5 mg twice daily, Lamictal 150 mg daily, Zoloft 25 mg at noon, gabapentin 300 mg 3 times daily
#Hx sepsis with obstructing ureteral calculi hydronephrosis January 2023
#history urine cultures grew E. coli 01/2023
#history of vent dependent respiratory failure requiring intubation extubation on 01/09/2023
#Chronic ambulatory dysfunction
Patient stands to wheelchair only
#Obesity due to excess calorie consumption�BMI 29.7 kg
DVT prophylaxis
SCDs
Full code
Anticipated Discharge: 24 - 48 hours
Subjective/Interval History
-
Date of Service: June 25, 2023
No further bleeding noted overnight no issues respiratory bland underlying dementia and repeatedly says Jose R
Objective Data
-
Labs:
Laboratory Results
06/25/23
05:54
WBC 4.7 L
Hgb 8.4 L
Hct 28.7 L
Plt Count 196
Sodium 141
Potassium 4.0
Chloride 108 H
Carbon Dioxide 25
BUN 17
Creatinine 0.6
Glucose 95
Calcium 9.3
Vital Signs:
Vital Signs
Temp Pulse Resp BP Pulse Ox
97.8 F 72 16 153/59 93
06/25/23 07:25 06/25/23 07:25 06/25/23 07:25 06/25/23 07:25 06/25/23 07:25
I&O
06/24/23 06/25/23 06/26/23
06:59 06:59 06:59
Intake Total 250 / 250 1130 / 1130
Balance 250 / 250 1130 / 1130
Review of Systems
-
Unable to obtain full review of systems at this time due to: Dementia
History Source: Patient
Physical Exam
-
General: Well Nourished
HEENT: Normocephalic and Atraumatic
Respiratory: Clear to Auscultation
Cardiac: Regular Rhythm
GI: Soft, Nontender and Nondistended
Musculoskeletal: Other (Right-sided hemiparesis)
Neuro: Awake
Hematologic / Lymphatic: Other (Expressive aphasia)
Psych: Calm
Data Reviewed
-
Total Time Spent with Patient (in minutes): 567
Labs: Labs Reviewed by me (Hemoglobin 8.4 stable)
[2023-06-25 12:23] LABS: Glucose - Point of Care 160 mg/dl (70-99)
[2023-06-25] MEDS: NOVOLOG FLEXPEN-LOW RESISTANCE 1 UNITS SC (12:52)
--- NOTE | 2023-06-25 12:52 | W.PN.GI.CBS2 ---
Today's Communication / Plan
-
EGD on Tuesday
N.p.o. after midnight tomorrow
Assessment / Plan
-
The pt is a 72 yo female with a PMH significant for CVA with expressive aphasia, right hemiplegia and ambulatory dysfunction, CAD status post 3 cardiac stents on ASA and plavix, hypertension, hyperlipidemia, diabetes, anxiety, depression, anemia,
who presents to the hospital due to abnormal outpatient labs showing a low hemoglobin and iron studies. We are being asked to evaluate for anemia with concern for GI bleed. Interval history noted above, with admission in the fall for septic shock
requiring ICU level of care for obstructive uropathy secondary to renal calculi requiring ureteral stenting. At that time had been anemic but workup was deferred due to acuity of illness. She had also had outpatient GI workup in the past for
anemia and was deemed too high risk for procedures by her outpatient GI doctor. She now presents again with recurrent anemia with dark heme positive stool. She is on aspirin and Plavix for history of CVA and CAD with stenting. She did have a
significant stroke in the past with expressive aphasia and ambulatory dysfunction. Noted with hemoglobin of 6.6, transfused with 1 unit of packed red blood cells with hemoglobin improvement to 7.9. Currently with no active signs of bleeding. Her
Plavix was placed on hold. She was placed on PPI daily. ?dx of cirrhosis per CT imaging with no prior work-up. She does not drink alcohol. Hep C negative.
Problem list:
-Recurrent iron deficiency anemia
-Dark brown, heme positive stool
-Prior CT imaging showing cirrhosis-liver function/platelet normal. Ultrasound abdomen 06/25/2023-cirrhotic appearance of liver, small complex 1.6 cm cyst in the left hepatic lobe.: GB not Visualized
-History of CAD with stenting on aspirin and Plavix
-History of CVA with expressive aphasia and right hemiplegia
-Acute on chronic microcytic anemia
-History of vitamin B12 deficiency
plan
Continue monitor H&H
advance diet
PPI bid
iron supplementation
Further workup/evaluation of liver cirrhosis outpatient
Daughter is agreeable for EGD ( SURVEY DIRECTOR spoke with daughter Angela ).� Will plan on Tuesday after Plavix washout
N.p.o. after midnight tomorrow
Total Time Spent with Patient (in minutes): 35
Subjective
Subjective
Date of Service: June 25, 2023
No GI bleeding as per RN. Tolerating diet
Objective
Data Reviewed
Laboratory Data:
Laboratory Results
06/25/23 05:54
06/25/23 05:54
Laboratory Results
PT 14.8 Sec (11.4-14.6) H 06/24/23 12:08
INR 1.17 06/24/23 12:08
Total Bilirubin 0.3 mg/dl (0.2-1.3) 06/23/23 18:30
AST 40 U/L (14-36) H 06/23/23 18:30
ALT 13 U/L (0-35) 06/23/23 18:30
Alkaline Phosphatase 60 U/L (38-126) 06/23/23 18:30
Vital Signs and I&O:
Vital Signs
Temp Pulse Resp BP Pulse Ox
97.8 F 68 16 140/56 96
06/25/23 11:15 06/25/23 11:15 06/25/23 11:15 06/25/23 11:15 06/25/23 11:15
I&O
06/24/23 06/25/23 06/26/23
06:59 06:59 06:59
Intake Total 250 / 250 1130 / 1130
Balance 250 / 250 1130 / 1130
Physical Exam
Physical Exam
GI: Soft, Non Distended and Non Tender
[2023-06-25] MEDS: FEOSOL 325 MG PO (12:54)
[2023-06-25] MEDS: ZOLOFT 25 MG PO (12:54)
[2023-06-25] MEDS: TENORMIN 25 MG PO (12:54)
[2023-06-25] MEDS: LOW STRENGTH ASPIRIN 81 MG PO (12:54)
--- NOTE | 2023-06-25 14:32 | CM ---
Patient seen bedside, unable to conduct initial assessment with patient. CM spoke with patients daughter, Dorothy. Per Dorothy, patient lives with her other sister and 24 hour caregivers through the waiver program. Dorothy reports she is basically living
with her mother now to help care for her. Dorothy reports patient has a walker but needs assistance at all times, Dorothy reports she tries to get her mother to move around more but cannot force her. Dorothy reports patient has support from her daughter in
law who is also listed as a contact. Dorothy confirms patients PCP Kameron Garibay, [facility]. Dorothy inquiring about a wheelchair, new hospital bed, and bed rails for patient. CM will continue to follow for discharge planning needs.
Plan; home with family and 24 hr care, watch for HH vs SNF recommendations.
[2023-06-25] MEDS: FERRLECIT 110 MG IV (15:56)
[2023-06-25 17:10] LABS: Glucose - Point of Care 128 mg/dl (70-99)
[2023-06-25] MEDS: GLUCOPHAGE 1000 MG PO (17:23)
[2023-06-25] MEDS: APRESOLINE 10 MG IV (17:23)
[2023-06-25 21:32] LABS: Glucose - Point of Care 121 mg/dl (70-99)
[2023-06-25] MEDS: LIPITOR 40 MG PO (22:02)
[2023-06-26] VITALS (8 sets, daily range): BP systolic 108–151; BP diastolic 49–62; BMI 28.7
[2023-06-26 07:46] LABS: % Basophils 0.4 % (0-2); % Eosinophils 2.2 % (0-6); % Immature Granulocytes 0.4 % (0-0.5); % Lymphocytes 23.9 % (20.5-51.1); % Neutrophils 65.1 % (42.2-75.2); Absolute Eosinophils 0.1 10^3/uL (0-0.7); Absolute Lymphocytes 1.3 10^3/uL (1.2-3.4); Absolute Monocytes 0.4 10^3/uL (0.1-0.6); Absolute Neutrophils 3.6 10^3/uL (1.4-6.5); Hematocrit 27.7 % (37.0-47.0); Hemoglobin 7.9 g/dL (12.0-16.0); Mean Corp Hgb Conc. 28.5 g/dL (33.0-37.0); Mean Corpuscular Volume 80.5 fL (81.0-99.0); Nucleated Red Blood Cells % 0 %; Platelet Count 188 10^3/uL (130-400); Red Blood Cell Count 3.44 10^6/uL (4.20-5.40); Red Cell Dist. Width 21.9 % (11.5-14.5); White Blood Cell Count 5.5 10^3/uL (4.8-10.8)
[2023-06-26 07:57] LABS: Glucose - Point of Care 110 mg/dl (70-99)
[2023-06-26 08:23] LABS: Sodium 138 mmol/L (135-145)
[2023-06-26 08:24] LABS: Blood Urea Nitrogen 19 mg/dl (7-17); Calcium 9.4 mg/dl (8.4-10.2); Carbon Dioxide 26 mmol/L (22-30); Chloride 105 mmol/L (98-107); Estimated Creatinine Clearance 48 ml/min; Glucose 119 mg/dl (70-99); Potassium 4.1 mmol/L (3.5-5.1); eGFR > 60.00
--- NOTE | 2023-06-26 08:52 | W.PN.HOSP.TC ---
Today's Communication/Plan
-
Still undergoing Plavix washout
For EGD in a.m.
Will be n.p.o. after midnight but has been tolerating regular diet after speech eval
Assessment / Plan
Assessment / Plan
Physical exam:
General: Well Developed, Well Nourished and No Apparent Distress/aphasic
HEENT: Normocephalic, Atraumatic and Moist Mucous Membranes
Respiratory: Clear to Auscultation; Negative Wheezes, Rales or Rhonchi
Cardiac: Regular Rhythm and S1/S2
GI: Soft, Nontender and Nondistended
Musculoskeletal: No Clubbing, No Cyanosis and No Edema
Neuro: Awake, Alert and Oriented, expressive aphasia present, right-sided hemiparesis.
Psych: Calm
A/P:
#Acute on chronic anemia:
-Status post blood transfusion
-PPI twice daily
-GI consult appreciated (discussed with GI today)
-Plan for upper endoscopy June 26
-Continue to hold Plavix
-Might consider colonoscopy down the road but await for EGD results first.
-Hemoglobin 7.9>> 8.4>> 7.9
-Updated daughter today, Dolores
#Dysphagia
-Will start on IDDSI-4 and have speech therapy for swallow eval
-Speech therapy evaluated and said okay for regular with thins
#CVA with right hemiplegia/Chronic aphasia 2008 cva during stent placement
-Resume aspirin 81 mg daily
-Continue to hold Plavix
-Continue atorvastatin 40 mg p.o. nightly
#Concern for cirrhosis
-Appropriate workup will be performed by GI for further evaluation
-Ultrasound consistent with cirrhotic changes gallbladder absent
#HTN�benign
BP in the high side
Continue atenolol 25 mg with holding parameters
Add IV hydralazine as needed for better BP control and will reeval
#HLD
-Continue Zocor 80 mg at bedtime
#history of cirrhosis and severe pancreatic lipomatosis on CT January 2023
#DM2
Accu-Cheks with SSI, check HgbA1c
Metformin 1000 mg twice daily to resume
#CAD status post PCI 2007
-Continue atenolol cont asa
#Bipolar disorder/anxiety
-Continue Klonopin 0.5 mg twice daily, Lamictal 150 mg daily, Zoloft 25 mg at noon, gabapentin 300 mg 3 times daily
#Hx sepsis with obstructing ureteral calculi hydronephrosis January 2023
#history urine cultures grew E. coli 01/2023
#history of vent dependent respiratory failure requiring intubation extubation on 01/09/2023
#Chronic ambulatory dysfunction
Patient stands to wheelchair only
#Obesity due to excess calorie consumption�BMI 29.7 kg
DVT prophylaxis
SCDs
Full code
Anticipated Discharge: 24 - 48 hours
Subjective/Interval History
-
Date of Service: June 26, 2023
Difficult to communicate with chronic aphasia no respiratory distress and's no reports of difficulty with transition to regular diet yesterday after seen by speech therapy.
Objective Data
-
Labs:
Laboratory Results
06/26/23
06:24
WBC 5.5
Hgb 7.9 L
Hct 27.7 L
Plt Count 188
Sodium 138
Potassium 4.1
Chloride 105
Carbon Dioxide 26
BUN 19 H
Creatinine 0.8
Glucose 119 H
Calcium 9.4
Vital Signs:
Vital Signs
Temp Pulse Resp BP Pulse Ox
98.6 F 76 16 133/49 95
06/26/23 07:46 06/26/23 07:46 06/26/23 07:46 06/26/23 07:46 06/26/23 07:46
I&O
06/25/23 06/26/23 06/27/23
06:59 06:59 06:59
Intake Total 1129 / 1130 930 / 930
Balance 1129 930 / 0
Review of Systems
-
Unable to obtain full review of systems at this time due to: Language Barrier and Patient Non-verbal (Chronic aphasia)
History Source: Patient
Physical Exam
-
General: Well Developed and Well Nourished
HEENT: Normocephalic
Respiratory: Clear to Auscultation
Cardiac: Regular Rhythm
GI: Soft, Nontender and Nondistended
Skin: Warm
Neuro: Awake, Alert and No Motor Deficits (Right hemiplegia)
Psych: Calm
Data Reviewed
-
Total Time Spent with Patient (in minutes): 56
Labs: Labs Reviewed by me
[2023-06-26] MEDS: NOVOLOG FLEXPEN-LOW RESISTANCE SC (08:53)
[2023-06-26] MEDS: NEURONTIN 300 MG PO ×3 (08:55→21:37)
[2023-06-26] MEDS: HIPREX 1 GRAM PO (08:55)
[2023-06-26] MEDS: GLUCOPHAGE 1000 MG PO ×2 (08:55→18:13)
[2023-06-26] MEDS: KLONOPIN 0.5 MG PO ×2 (08:56→20:27)
[2023-06-26] MEDS: PROTONIX 40 MG PO ×2 (08:56→20:27)
[2023-06-26] MEDS: LAMICTAL 150 MG PO (08:57)
[2023-06-26] MEDS: FEOSOL 325 MG PO (12:00)
[2023-06-26] MEDS: ZOLOFT 25 MG PO (12:00)
[2023-06-26] MEDS: LOW STRENGTH ASPIRIN 81 MG PO (12:01)
[2023-06-26] MEDS: TENORMIN 25 MG PO (12:01)
[2023-06-26 13:08] LABS: Glucose - Point of Care 200 mg/dl (70-99)
[2023-06-26] MEDS: FERRLECIT 110 MG IV (13:29)
[2023-06-26] MEDS: NOVOLOG FLEXPEN-LOW RESISTANCE 2 UNITS SC (13:31)
[2023-06-26 18:03] LABS: Glucose - Point of Care 150 mg/dl (70-99)
[2023-06-26] MEDS: NOVOLOG FLEXPEN-LOW RESISTANCE 1 UNITS SC (18:14)
[2023-06-26 18:36] LABS: F-Actin Antibody IgG 14 Units (0-19)
[2023-06-26 20:02] LABS: LKM-1 Ab (IgG) 1.2 U (0.0-24.9)
[2023-06-26 21:37] LABS: ANA, IgG Reflex to HEp-2 None Detected (None Detected)
[2023-06-26] MEDS: LIPITOR 40 MG PO (21:37)
[2023-06-26 21:41] LABS: Glucose - Point of Care 115 mg/dl (70-99)
[2023-06-27] VITALS (11 sets, daily range): BP systolic 17–169; BP diastolic 42–74; PULSE 73; O2SAT 98; BMI 28.7
[2023-06-27 07:39] LABS: Hematocrit 27.7 % (37.0-47.0); Hemoglobin 8.3 g/dL (12.0-16.0); Mean Corpuscular Volume 80.1 fL (81.0-99.0); Platelet Count 158 10^3/uL (130-400); Red Blood Cell Count 3.46 10^6/uL (4.20-5.40); Red Cell Dist. Width 22.1 % (11.5-14.5)
[2023-06-27 07:44] LABS: Glucose - Point of Care 101 mg/dl (70-99)
--- NOTE | 2023-06-27 07:58 | W.PN.HOSP.TC ---
Today's Communication/Plan
-
Plan for EGD. Monitor hemoglobin.
Assessment / Plan
Assessment / Plan
Physical exam:
General: Well Developed, Well Nourished and No Apparent Distress/aphasic
HEENT: Normocephalic, Atraumatic and Moist Mucous Membranes
Respiratory: Clear to Auscultation; Negative Wheezes, Rales or Rhonchi
Cardiac: Regular Rhythm and S1/S2
GI: Soft, Nontender and Nondistended
Musculoskeletal: No Clubbing, No Cyanosis and No Edema
Neuro: Awake, Alert and Oriented, expressive aphasia present, right-sided hemiparesis.
Psych: Calm
A/P:
#Acute on chronic anemia:
-Status post blood transfusion
-PPI twice daily
-GI consult appreciated (discussed with GI today)
-Plan for upper endoscopy today
-Continue to hold Plavix
-Might consider colonoscopy down the road but await for EGD results first.
-Hemoglobin 7.9>> 8.4>> 7.9-->8.3
-Updated daughter prior, Dolores
#Dysphagia
-Cont on IDDSI-4 and have speech therapy for swallow eval
-Speech therapy evaluated and said okay for regular with thins
#CVA with right hemiplegia/Chronic aphasia 2007 cva during stent placement
-Resume aspirin 81 mg daily
-Continue to hold Plavix
-Continue atorvastatin 40 mg p.o. nightly
#Concern for cirrhosis
-Appropriate workup will be performed by GI for further evaluation
-Ultrasound consistent with cirrhotic changes gallbladder absent
#HTN�benign
BP improved
Continue atenolol 25 mg with holding parameters
Added IV hydralazine as needed for better BP control and will reeval
#HLD
-Continue Zocor 80 mg at bedtime
#history of cirrhosis and severe pancreatic lipomatosis on CT January 2023
#DM2
Accu-Cheks with SSI, check HgbA1c
Metformin 1000 mg twice daily to resume
#CAD status post PCI 2007
-Continue atenolol cont asa
#Bipolar disorder/anxiety
-Continue Klonopin 0.5 mg twice daily, Lamictal 150 mg daily, Zoloft 25 mg at noon, gabapentin 300 mg 3 times daily
#Hx sepsis with obstructing ureteral calculi hydronephrosis January 2023
#history urine cultures grew E. coli 01/2023
#history of vent dependent respiratory failure requiring intubation extubation on 01/09/2023
#Chronic ambulatory dysfunction
Patient stands to wheelchair only
#Obesity due to excess calorie consumption�BMI 29.7 kg
DVT prophylaxis
SCDs
Full code
Anticipated Discharge: 24 - 48 hours
Subjective/Interval History
-
Date of Service: June 27, 2023
Patient seen and examined. No new complaints.
Objective Data
-
Labs:
Laboratory Results
06/27/23
07:26
WBC 5.0
Hgb 8.3 L
Hct 27.7 L
Plt Count 158
Vital Signs:
Vital Signs
Temp Pulse Resp BP Pulse Ox
98 F 74 16 131/53 96
06/27/23 03:22 06/27/23 03:22 06/27/23 03:22 06/27/23 03:22 06/27/23 03:22
I&O
06/26/23 06/27/23 06/28/23
06:59 06:59 06:59
Intake Total 930 / 930 360 / 360
Balance 930 / 930 360 / 360
[2023-06-27] MEDS: KLONOPIN PO (08:30)
[2023-06-27] MEDS: NEURONTIN PO (08:30)
[2023-06-27] MEDS: NOVOLOG FLEXPEN-LOW RESISTANCE SC ×3 (08:47→17:42)
[2023-06-27] MEDS: GLUCOPHAGE PO (08:47)
[2023-06-27 11:46] LABS: Glucose - Point of Care 109 mg/dl (70-99)
--- NOTE | 2023-06-27 14:11 | W.PN.UPDATE ---
Update Note
Progress Note Update
Impression:� � � � � � - Normal esophagus.
�� � � � � � � � � � � - Normal stomach.
�� � � � � � � � � � � - Normal examined duodenum.
�� � � � � � � � � � � - No specimens collected.
Recommendation:� � � � - Return patient to [facility] for ongoing care.
�� � � � � � � � � � � - Resume previous diet.
�� � � � � � � � � � � - discussed with Daughter benefits vs risks of
�� � � � � � � � � � � colonoscopy ( with patient's hx of CVA may not
�� � � � � � � � � � � tolerate bowel prep/ increased risk of aspiration etc
�� � � � � � � � � � � )> patient bobby would like to hold
�� � � � � � � � � � � off on further invasive testing including colonoscopy.
�� � � � � � � � � � � Conservative management with blood transfusion as
�� � � � � � � � � � � needed
�� � � � � � � � � � � - Hematology eval
�� � � � � � � � � � � - ok to resume plavix
�� � � � � � � � � � � - GI will s/o.Please call us back if any questions
-Follow up with GI as outpatient for liver cirrhosis
[2023-06-27 14:28] LABS: Glucose - Point of Care 91 mg/dl (70-99)
[2023-06-27] MEDS: FERRLECIT 110 MG IV (15:56)
[2023-06-27] MEDS: FLUSH (NSS) 2 FLUSH IV (15:58)
[2023-06-27 17:23] LABS: Glucose - Point of Care 73 mg/dl (70-99)
[2023-06-27] MEDS: HIPREX 1 GRAM PO (17:37)
[2023-06-27] MEDS: LAMICTAL 150 MG PO (17:37)
[2023-06-27] MEDS: NEURONTIN 300 MG PO ×2 (17:38→21:01)
[2023-06-27] MEDS: PROTONIX PO (17:38)
[2023-06-27] MEDS: GLUCOPHAGE 1000 MG PO (17:39)
[2023-06-27] MEDS: TENORMIN 25 MG PO (17:41)
[2023-06-27] MEDS: ZOLOFT 25 MG PO (17:41)
[2023-06-27] MEDS: LOW STRENGTH ASPIRIN 81 MG PO (17:41)
[2023-06-27] MEDS: FEOSOL 325 MG PO (17:42)
[2023-06-27] MEDS: KLONOPIN 0.5 MG PO (20:56)
[2023-06-27] MEDS: PROTONIX 40 MG PO (20:56)
[2023-06-27] MEDS: LIPITOR 40 MG PO (21:01)
[2023-06-27 21:22] LABS: Glucose - Point of Care 121 mg/dl (70-99)
[2023-06-28 03:50] VITALS: BP 108/57
[2023-06-28 06:00] VITALS: BMI 28.1
[2023-06-28 07:55] VITALS: BP 142/56
[2023-06-28 08:09] LABS: Glucose - Point of Care 97 mg/dl (70-99)
[2023-06-28 08:25] LABS: Hematocrit 27.1 % (37.0-47.0); Mean Corp Hgb Conc. 29.5 g/dL (33.0-37.0); Mean Corpuscular Volume 81.4 fL (81.0-99.0); Mean Platelet Volume 11.7 fL (7.4-10.4); Platelet Count 168 10^3/uL (130-400); Red Blood Cell Count 3.33 10^6/uL (4.20-5.40); Red Cell Dist. Width 22.4 % (11.5-14.5); White Blood Cell Count 4.2 10^3/uL (4.8-10.8)
--- NOTE | 2023-06-28 08:41 | CON.ONC ---
Impression
Impression
iron def anemia, Heme+
aphasia s/p CVA
Plan
Plan
Would continue IV iron course in hospital, then switch to oral iron QOD for outpatient repletion
If agreeable, would benefit from colonoscopy and/or capsule study to evaluate further
ASA/Plavix increases risk for ongoing bleeding
No evidence for bone marrow issue or explanation for anemia other than GI bleed
Patient History
History of Present Illness
72 yo F w/ h/o heme+ stool and iron deficiency anemia, presented to ER w/ symptomatic anemia, hgb of 6.8 as outpatient, with ER evaluation showing low iron stores, and heme+ stools. She's unable to offer history due to prior CVA and aphasia. EGD was
done yesterday, without bleeding source. Family has opted against colonoscopy. CBC otherwise unremarkable. She takes Plavix as outpatient.
Past-Medical/Surgical History
Past Medical History
Past Medical History: Reports Other
Additional Past Medical History:
�DM2
CVA with right hemiplegia as well as aphasia in 2007 postcardiac cath in [place]
CAD status post PCI 2008 stent x 3
�HTN
�HLD
� bipolar disorder, anxiety
,sepsis with obstructing ureteral calculi hydronephrosis January 2023
�history urine cultures grew E. coli 01/2023,
�history of vent dependent respiratory failure requiring intubation extubation on 01/09
�history of cirrhosis and severe pancreatic lipomatosis on CT January 2023
Past Surgical History: Reports Other ( section x 4, cardiac stent times 06/2007,Cystoscopy and right stent placement on 01/05/2023)
Social History
Tobacco: Former Smoker (Quit 2007)
Alcohol: None
Drug: None
Personal: Single
Living: With Family (Has 24-hour caretakers)
Employment: Disabled
Family History
Family History: Other (Father DM 2, brother SC, Hx DM2)
Patient Medication
Medication Instructions Recorded Confirmed Last Taken Type
aspirin 81 mg chewable tablet 81 mg PO NOON Blood clot 04/22/21 06/23/23 06/23/23 History
prevention/tx
atenolol 25 mg tablet 25 mg PO NOON Blood pressure 04/22/21 06/23/23 06/23/23 History
clonazepam 0.5 mg tablet 0.5 mg PO BID Mental Health/Anxiety 04/22/21 06/23/23 06/23/23 History
clopidogrel 75 mg tablet 75 mg PO DAILY Blood clot 04/22/21 06/23/23 06/23/23 History
prevention/tx
docosahexaenoic acid (dha)-epa 120 1 cap PO NOON Supplement 04/22/21 06/23/23 06/23/23 History
mg-180 mg capsule
ferrous sulfate 325 mg (65 mg 325 mg PO NOON Supplement 04/22/21 06/23/23 06/23/23 History
iron) tablet (FeroSul)
gabapentin 300 mg capsule 300 mg PO TID Mental Health/Anxiety 04/22/21 06/23/23 06/23/23 History
lamotrigine 150 mg tablet 150 mg PO DAILY Mental 04/22/21 06/23/23 06/23/23 History
(Lamictal) Health/Anxiety
omeprazole 20 mg capsule,delayed 20 mg PO QPM Gastrointestinal issue 04/22/21 06/23/23 06/22/23 History
release
simvastatin 80 mg tablet 80 mg PO HS High cholesterol 04/22/21 06/23/23 06/22/23 History
metformin 1,000 mg tablet 1,000 mg PO BID@0700,1800 Diabetes 01/05/23 06/23/23 06/23/23 History
mv-min-vit C 250 rf-uhuhzs-[id number] 1 tab PO QPM Supplement 01/05/23 06/23/23 06/22/23 History
HCl-herb 124 12.5 mg chewable
tablet (Immune Support)
sertraline 25 mg tablet 25 mg PO NOON Mental Health/Anxiety 01/05/23 06/23/23 06/23/23 History
methenamine hippurate 1 gram 1 g PO DAILY Infection 06/23/23 06/23/23 06/23/23 History
tablet (Hiprex)
Active Medications
Generic Name Dose Route Start Last Admin
Trade Name Freq PRN Reason Stop Dose Admin
Aspirin 81 mg 06/24/23 12:00 06/27/23 17:41
Aspirin 81 Mg Chewable Tablet PO 07/22/23 11:59 81 mg
NOON KAYLIE Administration
Atenolol 25 mg 06/24/23 12:00 06/27/23 17:41
Atenolol 25 Mg Tablet PO 07/22/23 11:59 25 mg
NOON KAYLIE Administration
Atorvastatin Calcium 40 mg 06/23/23 23:00 06/27/23 21:01
Atorvastatin (Lipitor) 40 Mg Tablet PO 07/21/23 22:59 40 mg
HS KAYLIE Administration
Clonazepam 0.5 mg 06/24/23 08:00 06/27/23 20:56
Clonazepam 0.5 Mg Tablet PO 07/22/23 07:59 0.5 mg
BID KAYLIE Administration
Dextrose 12.5 grams 06/23/23 23:22
Dextrose 50% (0.5 Grams/Ml) 50 Ml Syringe IV 07/21/23 23:21
[id number] PRN
hypoglycemia
Protocol
Ferrous Sulfate 325 mg 06/24/23 12:00 06/27/23 17:42
Ferrous Sulfate 325 Mg Tablet PO 07/22/23 11:59 325 mg
NOON KAYLIE Administration
Gabapentin 300 mg 06/23/23 23:22 06/27/23 21:01
Gabapentin 300 Mg Capsule PO 07/21/23 23:21 300 mg
TID KAYLIE Administration
Glucagon 1 mg 06/23/23 23:22
Glucagon 1 Mg Vial IM 07/21/23 23:21
PRN PRN
hypoglycemia
Protocol
Hydralazine HCl 10 mg 06/24/23 12:28 06/25/23 17:23
Hydralazine 20 Mg/Ml Vial IV 07/22/23 12:27 10 mg
Q6HPRN PRN Administration
SBP > 140
Ferric Sodium Gluconate 110 mls @ 110 mls/hr 06/24/23 14:00 06/27/23 15:56
Complex 125 mg/ Sodium IV 06/28/23 14:59 110 mls
Chloride DAILY@1400 KAYLIE Administration
Insulin Aspart 0 units 06/24/23 11:30 06/27/23 17:42
Insulin Aspart Low Resistance 300 Units/3 Ml Pen.Injctr SC 07/22/23 11:29 Not Given
AC KAYLIE
Protocol
Lamotrigine 150 mg 06/24/23 08:00 06/27/23 17:37
Lamotrigine 100 Mg Tablet PO 07/22/23 07:59 150 mg
DAILY KAYLIE Administration
Metformin HCl 1,000 mg 06/24/23 18:00 06/27/23 17:39
Metformin 1000 Mg Regular Release Tablet PO 07/22/23 17:59 1,000 mg
BID@0700,1800 KAYLIE Administration
Methenamine Hippurate 1 gram 06/24/23 13:00 06/27/23 17:37
Methenamine Hippurate 1 Gram Tablet PO 07/21/23 08:01 1 gram
DAILY KAYLIE Administration
Pantoprazole Sodium 40 mg 06/24/23 20:00 06/27/23 20:56
Pantoprazole 40 Mg Delayed Release Tablet PO 07/22/23 19:59 40 mg
BID KAYLIE Administration
Sertraline HCl 25 mg 06/24/23 12:00 06/27/23 17:41
Sertraline 25 Mg Tablet PO 07/22/23 11:59 25 mg
NOON KAYLIE Administration
Sodium Chloride 0 flush 06/23/23 23:00 06/27/23 15:58
Sodium Chloride 0.9% (Flush) Syringe IV 07/21/23 22:59 2 flush
PER PROTOCOL KAYLIE Administration
Review of Systems
-
Unable to obtain full review of systems at this time due to: Patient Non Verbal
All Other Systems: Not reviewed unless documented
Physical Exam
-
General: Well Developed and Well Nourished
HEENT: Moist Mucous Membranes
Neurology: Other (aphasia)
Skin: Warm
Psych: Calm
Labs
Lab Results
WBC 4.2 10^3/uL (4.8-10.8) L 06/28/23 07:45
RBC 3.33 10^6/uL (4.20-5.40) L 06/28/23 07:45
Hgb 8.0 g/dL (12.0-16.0) L 06/28/23 07:45
Hct 27.1 % (37.0-47.0) L 06/28/23 07:45
MCV 81.4 fL (81.0-99.0) 06/28/23 07:45
MCH 24.0 pg (27.0-31.0) L 06/28/23 07:45
MCHC 29.5 g/dL (33.0-37.0) L 06/28/23 07:45
RDW 22.4 % (11.5-14.5) H 06/28/23 07:45
Plt Count 168 10^3/uL (130-400) 06/28/23 07:45
MPV 11.7 fL (7.4-10.4) H 06/28/23 07:45
Abs Immat Gran (auto) 0.0 10^3/uL (0-0.05) 06/26/23 06:24
Absolute Neuts (auto) 3.6 10^3/uL (1.4-6.5) 06/26/23 06:24
Absolute Lymphs (auto) 1.3 10^3/uL (1.2-3.4) 06/26/23 06:24
Absolute Monos (auto) 0.4 10^3/uL (0.1-0.6) 06/26/23 06:24
Absolute Eos (auto) 0.1 10^3/uL (0-0.7) 06/26/23 06:24
Absolute Basos (auto) 0.0 10^3/uL (0-0.2) 06/26/23 06:24
Immature Gran % 0.4 % (0-0.5) 06/26/23 06:24
Neutrophils % 65.1 % (42.2-75.2) 06/26/23:
Lymphocytes % 23.9 % (20.5-51.1) 06/26/23:24
Monocytes % 8.0 % (1.7-9.3) 06/26/23 06:24
Eosinophils % 2.2 % (0-6) 06/26/23 06:24
Basophils % 0.4 % (0-2) 06/26/23 06:24
Creatinine 0.8 mg/dL (0.6-1.0) 06/26/23 06:24
Vital Signs
Vital Signs
Temp Pulse Resp BP Pulse Ox
98.1 F 78 17 108/57 96
06/28/23 03:50 06/28/23 03:50 06/28/23 03:50 06/28/23 03:50 06/28/23 03:50
[2023-06-28] MEDS: LAMICTAL 150 MG PO (08:56)
[2023-06-28] MEDS: NEURONTIN 300 MG PO ×2 (08:57→17:56)
[2023-06-28] MEDS: HIPREX 1 GRAM PO (08:57)
[2023-06-28] MEDS: PROTONIX 40 MG PO (08:57)
[2023-06-28] MEDS: GLUCOPHAGE 1000 MG PO ×2 (08:57→17:56)
[2023-06-28] MEDS: KLONOPIN 0.5 MG PO (08:57)
[2023-06-28] MEDS: NOVOLOG FLEXPEN-LOW RESISTANCE SC ×2 (08:58→17:55)
--- NOTE | 2023-06-28 09:01 | W.PN.HOSP.TC ---
Addendum entered and electronically signed by Jose Barnes MD 06/28/23 18:10:
Patient is in need of a semi-electric hospital bed with foam mattress due to the need to elevate head of bed above 30 degrees to prevent aspiration
and to facilitate frequent repositioning to prevent bed ulcers and pressure points.
Patient is also in need of a wheelchair due to ambulatory dysfunction and the need to rest when ambulating long distances. Mobility limitation can not be resolved by use of cane or walker.
Original Note:
Today's Communication/Plan
-
Discharge planning today.
Assessment / Plan
Assessment / Plan
Physical exam:
General: Well Developed, Well Nourished and No Apparent Distress/aphasic
HEENT: Normocephalic, Atraumatic and Moist Mucous Membranes
Respiratory: Clear to Auscultation; Negative Wheezes, Rales or Rhonchi
Cardiac: Regular Rhythm and S1/S2
GI: Soft, Nontender and Nondistended
Musculoskeletal: No Clubbing, No Cyanosis and No Edema
Neuro: Awake, Alert and Oriented, expressive aphasia present, right-sided hemiparesis.
Psych: Calm
A/P:
#Acute on chronic anemia:
-Status post blood transfusion
-PPI twice daily
-GI consult appreciated (discussed with GI today)
-Plan for upper endoscopy today
-Continue to hold Plavix
-Might consider colonoscopy down the road but await for EGD results first.
-Hemoglobin 7.9>> 8.4>> 7.9-->8.3-->8
-Appreciate hematology consult--> finished IV iron, resume oral iron, follow-up with hematology as outpatient
-Plan to discharge today
-Updated daughter today on 06/27, Dolores
#Dysphagia
-Cont on IDDSI-4 and have speech therapy for swallow eval
-Speech therapy evaluated and said okay for regular with thins
#CVA with right hemiplegia/Chronic aphasia 2007 cva during stent placement
-Resume aspirin 81 mg daily
-Continue to hold Plavix
-Continue atorvastatin 40 mg p.o. nightly
#Concern for cirrhosis
-Appropriate workup will be performed by GI for further evaluation
-Ultrasound consistent with cirrhotic changes gallbladder absent
#HTN�benign
BP improved
Continue atenolol 25 mg with holding parameters
Added IV hydralazine as needed for better BP control and will reeval
#HLD
-Continue Zocor 80 mg at bedtime
#history of cirrhosis and severe pancreatic lipomatosis on CT January 2023
#DM2
Accu-Cheks with SSI, check HgbA1c
Metformin 1000 mg twice daily to resume
#CAD status post PCI 2007
-Continue atenolol cont asa
#Bipolar disorder/anxiety
-Continue Klonopin 0.5 mg twice daily, Lamictal 150 mg daily, Zoloft 25 mg at noon, gabapentin 300 mg 3 times daily
#Hx sepsis with obstructing ureteral calculi hydronephrosis January 2023
#history urine cultures grew E. coli 01/2023
#history of vent dependent respiratory failure requiring intubation extubation on 01/09/2023
#Chronic ambulatory dysfunction
Patient stands to wheelchair only
#Obesity due to excess calorie consumption�BMI 29.7 kg
DVT prophylaxis
SCDs
Full code
Anticipated Discharge: Today
Subjective/Interval History
-
Date of Service: June 28, 2023
Patient seen and examined.
Objective Data
-
Labs:
Laboratory Results
06/28/23
07:45
WBC 4.2 L
Hgb 8.0 L
Hct 27.1 L
Plt Count 168
Vital Signs:
Vital Signs
Temp Pulse Resp BP Pulse Ox
98.1 F 78 17 108/57 96
06/28/23 03:50 06/28/23 03:50 06/28/23 03:50 06/28/23 03:50 06/28/23 03:50
I&O
06/27/23 06/28/23 06/29/23
06:59 06:59 06:59
Intake Total 360 / 360 1010 / 1010
Balance 360 / 360 1010 / 1010
[2023-06-28 11:55] VITALS: BP 138/45
--- NOTE | 2023-06-28 11:56 | W.DCSUMMARY ---
Discharge Summary
Discharge Data
Date of Admission: 06/23/23
Date of Discharge: 06/28/23
-
Pending Results: No
Hospital Course
Patient 72 years old female with history of CVA and expressive aphasia and right hemiplegia and bladder dysfunction, CAD, hypertension, hyperlipidemia, diabetes mellitus, anemia, depression, presented to the hospital with worsening anemia. Patient
received blood transfusions and IV iron infusions. GI was consulted. GI did an upper endoscopy on 06/26 with no acute abnormalities found. GI discussed with daughter and after discussing pros and cons of colonoscopy it was decided to hold off on
any further invasive testing such as colonoscopy. GI was okay to resume Plavix along with aspirin. I did discuss with family but they need to revisit the ongoing need for dual antiplatelet therapy as outpatient with her outpatient gyro compass tester and
PCP. GI also recommended hematology evaluation. Hematology was consulted. They recommended to continue iron replacement. Will have her follow-up with GI and hematology as outpatient. Otherwise, patient hemodynamically and no signs of active
bleeding. Hemoglobin upon discharge was 8. She will be discharged in stable condition today.
Discharge duration: 37 minutes
Discharge Plan
-
Patient Disposition: Home with Home Care
Discharge Diagnosis/Procedures: Iron deficiency anemia. History of stroke with aphasia. Cirrhosis. Hypertension. Hyperlipidemia. Diabetes mellitus type 2. Coronary artery disease.
Diet: Low Cholesterol
Activity: As tolerated
Driving Restrictions: As prior to admission
Blood Work: Please PCP to order CBC, BMP within 1 week
Referrals:
Grace Sampson MD [Active] - in two to four weeks
Karon Alfredo MD [Active] - in four to six weeks
Kameron Garibay DO [Family Provider] - in less than 1 week
Prescriptions:
Continued
lamotrigine [Lamictal] 150 MG tablet
150 mg PO DAILY
clonazepam 0.5 MG tablet
0.5 mg PO BID
atenolol 25 MG tablet
25 mg PO NOON
clopidogrel 75 MG tablet
75 mg PO DAILY
simvastatin 80 MG tablet
80 mg PO HS
ferrous sulfate [FeroSul] 325 MG tablet
325 mg PO NOON
gabapentin 300 MG capsule
300 mg PO TID
omeprazole 20 MG capsule,delayed release(DR/EC)
20 mg PO QPM
aspirin 81 MG tablet,chewable
81 mg PO NOON
docosahexaenoic acid-epa 1 CAP capsule
1 cap PO NOON
metformin 1,000 mg tablet
1,000 mg PO BID@0700,1800
sertraline 25 mg tablet
25 mg PO NOON
Immune Support 250-12.5 mg Tablet,Chewable
1 tab PO QPM
methenamine hippurate [Hiprex] 1 gram Tablet
1 g PO DAILY
Discharge Orders:
Discharge Patient (As Directed); Ordered 06/28/23
Ordered By: Jose Barnes
Discharge Date and Time
Discharge Date/Time: 06/28/23 19:03
Print Language: TELUGU
[2023-06-28 12:01] LABS: Glucose - Point of Care 164 mg/dl (70-99)
[2023-06-28] MEDS: LOW STRENGTH ASPIRIN 81 MG PO (12:41)
[2023-06-28] MEDS: TENORMIN 25 MG PO (12:42)
[2023-06-28] MEDS: ZOLOFT 25 MG PO (12:43)
[2023-06-28] MEDS: FLUZONE HIGH-DOSE QUAD 2023-24 0.699999999999999956 ML IM (12:44)
[2023-06-28] MEDS: NOVOLOG FLEXPEN-LOW RESISTANCE 1 UNITS SC (12:45)
[2023-06-28] MEDS: FERRLECIT 110 MG IV (13:26)
--- NOTE | 2023-06-28 15:54 | CM ---
CM following re: d/c planning
Chart reviewed
Pt is medically stable for d/c
Pt will be discharged home with [facility] & also has private caregivers through an agency called [facility] which is non-clinical and assist patient with attendant care
CM is trying to coordinate delivery of a w/c & hospital bed however supportive documentation is needed with the script
[facility] & inhouse transport forms were completed and provided to the --transport set up for 6:30pm and family was notified of the same
CM to fax over clinicals to support above requested DME when available
No additional d/c needs to note
PLAN; d/c home with [facility]
[2023-06-28 15:55] VITALS: BP 154/49
--- NOTE | 2023-06-28 16:47 | PTCARENOTE ---
Rn Flow mainstreaming facilitator- Patient cleared for d/c. Atttempted to give d/c instructions to patient, but it was unclear how much information patient understood. Patient's instructions given to Angela Rivas over the phone.
[2023-06-28 16:53] LABS: Glucose - Point of Care 112 mg/dl (70-99)
== END 2023-06-28 19:03 | disposition home health service (06) | DRG 812 ==
LOC: 4 EAST ACU 22:33
PROVIDERS: Clinical Nurse Specialist Family Health; Emergency Medicine; Internal Medicine; Nurse Practitioner Family; ADMITTING PHYSICIAN Hospitalist; ATTENDING PHYSICIAN Hospitalist; CONSULT PHYSICIAN Internal Medicine Gastroenterology; EMERGENCY PHYSICIAN Emergency Medicine; FAMILY PHYSICIAN Family Medicine; OTHER PHYSICIAN Internal Medicine Hematology & Oncology
PROC: 30233N1 Transfusion of Nonautologous Red Blood Cells into Peripheral Vein, Percutaneous Approach (ICD-10-PCS; 2023-06-24)
PROC: 0DJ08ZZ Inspection of Upper Intestinal Tract, Via Natural or Artificial Opening Endoscopic (ICD-10-PCS; 2023-06-27)
DX: D50.9 Iron deficiency anemia, unspecified (principal); I69.351 Hemiplegia and hemiparesis following cerebral infarction affecting right dominant side; K92.2 Gastrointestinal hemorrhage, unspecified; I10 Essential (primary) hypertension; I25.10 Atherosclerotic heart disease of native coronary artery without angina pectoris; E11.649 Type 2 diabetes mellitus with hypoglycemia without coma; I69.320 Aphasia following cerebral infarction; F31.9 Bipolar disorder, unspecified; K74.60 Unspecified cirrhosis of liver; E53.8 Deficiency of other specified B group vitamins; Z87.891 Personal history of nicotine dependence; Z79.02 Long term (current) use of antithrombotics/antiplatelets; Z79.82 Long term (current) use of aspirin; E78.00 Pure hypercholesterolemia, unspecified; E66.09 Other obesity due to excess calories; Z68.29 Body mass index [BMI] 29.0-29.9, adult; F41.9 Anxiety disorder, unspecified
CPT/HCPCS: 76700; 80048; 80053; 82607; 82728; 82746; 82962; 83036; 83540; 83550; 85014; 85018; 85025; 85027; 85610; 86015; 86038; 86376; 86381; 86704; 86706; 86708; 86803; 86850; 86870; 86880; 86900; 86901; 86905; 86920; 86922; 87340; 92526; 92610; 97162; 97166; 97530; 99285; J2916; P9016

== ENCOUNTER → 2024-02-08 15:55 | Outpatient (REF) | payer OTHER, SELFPAY ==
[2024-02-08 14:55] LABS: % Basophils 0.5 % (0-2); % Eosinophils 2.7 % (0-6); % Immature Granulocytes 0.2 % (0-0.5); % Lymphocytes 27.4 % (20.5-51.1); % Monocytes 8.7 % (1.7-9.3); % Neutrophils 60.5 % (42.2-75.2); Absolute Eosinophils 0.2 10^3/uL (0-0.7); Absolute Lymphocytes 1.6 10^3/uL (1.2-3.4); Absolute Monocytes 0.5 10^3/uL (0.1-0.6); Absolute Neutrophils 3.5 10^3/uL (1.4-6.5); Hematocrit 31.7 % (37.0-47.0); Hemoglobin 10.3 g/dL (12.0-16.0); Mean Corp Hgb Conc. 32.5 g/dL (33.0-37.0); Mean Corpuscular Hgb 31.1 pg (27.0-31.0); Mean Corpuscular Volume 95.8 fL (81.0-99.0); Mean Platelet Volume 11.6 fL (7.4-10.4); Platelet Count 155 10^3/uL (130-400); Red Blood Cell Count 3.31 10^6/uL (4.20-5.40); Red Cell Dist. Width 13.2 % (11.5-14.5); White Blood Cell Count 5.8 10^3/uL (4.8-10.8)
== END ==
LOC: OIDL 15:55
PROVIDERS: ATTENDING PHYSICIAN Nurse Practitioner Acute Care
DX: D50.9 Iron deficiency anemia, unspecified (principal)
CPT/HCPCS: 85025

== ENCOUNTER → 2024-02-16 16:01 | Outpatient (REF) | payer OTHER, SELFPAY ==
[2024-02-16 14:29] LABS: % Basophils 0.3 % (0-2); % Eosinophils 2.6 % (0-6); % Immature Granulocytes 0.2 % (0-0.5); % Lymphocytes 28.8 % (20.5-51.1); % Monocytes 8.9 % (1.7-9.3); % Neutrophils 59.2 % (42.2-75.2); Absolute Eosinophils 0.2 10^3/uL (0-0.7); Absolute Lymphocytes 1.7 10^3/uL (1.2-3.4); Absolute Monocytes 0.5 10^3/uL (0.1-0.6); Absolute Neutrophils 3.4 10^3/uL (1.4-6.5); Hematocrit 32.6 % (37.0-47.0); Mean Corp Hgb Conc. 30.7 g/dL (33.0-37.0); Mean Corpuscular Hgb 30.9 pg (27.0-31.0); Mean Corpuscular Volume 100.6 fL (81.0-99.0); Mean Platelet Volume 12.3 fL (7.4-10.4); Platelet Count 167 10^3/uL (130-400); Red Blood Cell Count 3.24 10^6/uL (4.20-5.40); Red Cell Dist. Width 14.7 % (11.5-14.5); White Blood Cell Count 5.7 10^3/uL (4.8-10.8)
== END ==
LOC: OIDL 16:01
PROVIDERS: ATTENDING PHYSICIAN Internal Medicine Hematology & Oncology
DX: D50.9 Iron deficiency anemia, unspecified (principal)
CPT/HCPCS: 85025

== ENCOUNTER 2024-02-24 14:41 | Outpatient (RCR) | payer OTHER, SELFPAY ==
[2024-02-24 13:52] LABS: % Basophils 0.8 % (0-2); % Eosinophils 2.9 % (0-6); % Immature Granulocytes 0.3 % (0-0.5); % Lymphocytes 24.1 % (20.5-51.1); % Monocytes 7.3 % (1.7-9.3); % Neutrophils 64.6 % (42.2-75.2); Absolute Basophils 0.1 10^3/uL (0-0.2); Absolute Eosinophils 0.2 10^3/uL (0-0.7); Absolute Lymphocytes 1.5 10^3/uL (1.2-3.4); Absolute Monocytes 0.5 10^3/uL (0.1-0.6); Hematocrit 38.7 % (37.0-47.0); Hemoglobin 11.7 g/dL (12.0-16.0); Mean Corp Hgb Conc. 30.2 g/dL (33.0-37.0); Mean Corpuscular Hgb 30.6 pg (27.0-31.0); Mean Corpuscular Volume 101.3 fL (81.0-99.0); Mean Platelet Volume 11.8 fL (7.4-10.4); Nucleated Red Blood Cells % 0 %; Platelet Count 162 10^3/uL (130-400); Red Blood Cell Count 3.82 10^6/uL (4.20-5.40); Red Cell Dist. Width 14.6 % (11.5-14.5); White Blood Cell Count 6.2 10^3/uL (4.8-10.8)
== END 2024-03-03 23:59 | disposition home or self-care (01) ==
LOC: OID 14:41
PROVIDERS: ATTENDING PHYSICIAN Internal Medicine Hematology & Oncology
DX: D50.9 Iron deficiency anemia, unspecified (principal); R79.0 Abnormal level of blood mineral; R53.83 Other fatigue; Z87.19 Personal history of other diseases of the digestive system
CPT/HCPCS: 85025

== ENCOUNTER → 2024-02-28 16:33 | Outpatient (REF) | payer OTHER, SELFPAY ==
[2024-02-28 14:18] LABS: % Basophils 0.7 % (0-2); % Eosinophils 2.4 % (0-6); % Immature Granulocytes 0.2 % (0-0.5); % Monocytes 8.9 % (1.7-9.3); % Neutrophils 61.8 % (42.2-75.2); Absolute Eosinophils 0.1 10^3/uL (0-0.7); Absolute Lymphocytes 1.5 10^3/uL (1.2-3.4); Absolute Monocytes 0.5 10^3/uL (0.1-0.6); Absolute Neutrophils 3.6 10^3/uL (1.4-6.5); Hematocrit 35.3 % (37.0-47.0); Hemoglobin 10.7 g/dL (12.0-16.0); Mean Corp Hgb Conc. 30.3 g/dL (33.0-37.0); Mean Corpuscular Hgb 30.7 pg (27.0-31.0); Mean Corpuscular Volume 101.1 fL (81.0-99.0); Mean Platelet Volume 12.2 fL (7.4-10.4); Platelet Count 163 10^3/uL (130-400); Red Blood Cell Count 3.49 10^6/uL (4.20-5.40); Red Cell Dist. Width 14.8 % (11.5-14.5); White Blood Cell Count 5.8 10^3/uL (4.8-10.8)
== END ==
LOC: OIDL 16:33
PROVIDERS: ATTENDING PHYSICIAN Internal Medicine Hematology & Oncology
DX: D50.9 Iron deficiency anemia, unspecified (principal)
CPT/HCPCS: 85025

== ENCOUNTER → 2024-06-26 11:41 | Outpatient (REF) | payer OTHER, SELFPAY ==
[2024-06-26 11:48] LABS: % Basophils 0.6 % (0-2); % Eosinophils 4.5 % (0-6); % Lymphocytes 27.4 % (20.5-51.1); % Monocytes 8.7 % (1.7-9.3); % Neutrophils 58.8 % (42.2-75.2); Absolute Eosinophils 0.2 10^3/uL (0-0.7); Absolute Lymphocytes 1.4 10^3/uL (1.2-3.4); Absolute Monocytes 0.4 10^3/uL (0.1-0.6); Hematocrit 37.6 % (37.0-47.0); Hemoglobin 12.1 g/dL (12.0-16.0); Mean Corp Hgb Conc. 32.2 g/dL (33.0-37.0); Mean Corpuscular Hgb 30.9 pg (27.0-31.0); Mean Corpuscular Volume 96.2 fL (81.0-99.0); Mean Platelet Volume 12.2 fL (7.4-10.4); Platelet Count 153 10^3/uL (130-400); Red Blood Cell Count 3.91 10^6/uL (4.20-5.40); Red Cell Dist. Width 13.9 % (11.5-14.5); White Blood Cell Count 5.1 10^3/uL (4.8-10.8)
== END ==
LOC: OIDL 11:41
PROVIDERS: ATTENDING PHYSICIAN Internal Medicine Hematology & Oncology
DX: D50.9 Iron deficiency anemia, unspecified (principal); R53.82 Chronic fatigue, unspecified
CPT/HCPCS: 85025

== ENCOUNTER → 2024-08-23 10:42 | Outpatient (REF) | payer OTHER, SELFPAY | LOC: RAD 10:42 | PROVIDERS: ATTENDING PHYSICIAN Physician Assistant; FAMILY PHYSICIAN Family Medicine | DX: K59.00 Constipation, unspecified (principal) | CPT/HCPCS: 74018 ==

== ENCOUNTER 2024-12-18 13:12 | Emergency (ER) | payer OTHER, SELFPAY ==
[2024-12-18 13:13] VITALS: BP 166/50
--- NOTE | 2024-12-18 15:33 | ED.GENMED ---
History of Present Illness
General
Chief Complaint: Abdominal Pain
Time Seen by Provider: 12/18/24 15:32
History of Present Illness
History of Present Illness:
FOCUSED PAST MEDICAL HISTORY
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
REVIEW OF OLD RECORDS
- I reviewed records, the patient was seen here in June 2023 and was admitted at that time with worsening anemia. She received blood and IV iron infusions. She had an upper endoscopy at that time which showed no acute abnormality. She did not
have a colonoscopy during that hospitalization.
Note:
CHIEF COMPLAINT(S)
Abdominal pain and discomfort.
HISTORY OF PRESENT ILLNESS
The patient is a 74-year-old female with a recent history of urinary tract infections and a past stroke, leading to aphasia and right-sided weakness. She presented with complaints of abdominal pain, which she described by pointing to her buttocks.
She recently completed a course of trimethoprim/sulfamethoxazole for a urinary tract infection, prescribed by an urgent care facility following a urine analysis that revealed blood in the urine. Urinary cultures were not mentioned as part of her
diagnostics.
The patient lives independently with her daughter and grandson, indicating some level of independence despite her stroke-related deficits. The symptoms of abdominal discomfort reportedly fluctuate in intensity. She had previously been evaluated by a
gastrointestinal specialist and underwent an abdominal x-ray, which revealed constipation. Despite this, she reports regular bowel movements, occurring daily and including the day of the visit.
Upon physical examination, the patient expressed discomfort during palpation, particularly in the abdominal and rectal areas. A firm mass was palpable during the rectal exam, suggestive of possible fecal impaction. There was no evidence of skin
breakdown in the area examined.
Her ijqmqrdn-kx-trn mentioned that the patient had not undergone a colonoscopy due to concerns about her overall health condition.
PAST MEDICAL AND SURGICAL HISTORY
History of stroke resulting in aphasia and right-sided weakness. Susceptibility to urinary tract infections.
EXTERNAL RECORDS REVIEWED
Urgent care visit records indicated a recent prescription for trimethoprim/sulfamethoxazole due to a urinary tract infection, confirmed by a urine test showing blood presence.
SOCIAL DETERMINANTS AFFECTING HEALTH
The patient lives independently with her daughter and grandson and is receiving assistance from family for care when needed. No significant barriers to care were reported.
REVIEW OF SYSTEMS
- Abdominal discomfort and pain fluctuating in intensity.
- Regular bowel movements daily.
- No new neurological symptoms noted since previous stroke.
PHYSICAL EXAM
General: Alert, no acute distress. Appears chronically ill.
Skin: Warm, dry.
Head: Normocephalic, atraumatic.
Neck: Supple, trachea midline.
Eye, Ears, Nose, Mouth, and Throat: Oral mucosa moist.
Cardiovascular: Normal peripheral perfusion, No edema.
Respiratory: Respirations are non-labored.
Gastrointestinal: Abdomen nondistended, no definite tenderness on examination of the abdomen but the patient seem to have discomfort with digital rectal examination and on digital rectal examination there is a palpable firm mass like structure in
the right side of the anus with no clear obvious hemorrhoid, no rectal fecal impaction
Back: Normal range of motion, Normal alignment.
Musculoskeletal: Markedly decreased active range of motion of the right side
Neurological: The patient has marked aphasia, absent strength of the right upper extremity and right lower extremity
Psychiatric: Very limited historian given prior stroke
PLAN
1. Obtain a CT scan of the abdomen to further investigate the cause of the firm mass detected on rectal examination.
2. Perform blood work to rule out any acute abnormalities.
3. Consider referral back to gastrointestinal specialists for a more comprehensive evaluation.
4. Discuss with the patient�s family about the potential need for a colonoscopy, pending further assessment and risk evaluation.
DIFFERENTIAL DIAGNOSIS
The Differential Diagnosis includes, in no particular order and is not limited to:
1. Fecal impaction
2. Constipation
3. Diverticulitis
4. Colorectal cancer
5. Bowel obstruction
6. Urinary tract infection
7. Gastroenteritis
8. Irritable bowel syndrome
9. Ischemic colitis
10. Hemorrhoids
RADIOLOGY
- CAT scan personally reviewed and agree with radiologist interpretation that there is a mass at the right anal region measuring over 4 cm
LABS
- White count is not elevated
UPDATE
-SUMMARY OF ENCOUNTER
The patient, a 74-year-old female, presented with abdominal discomfort and pain. A firm mass was palpable during the rectal examination, raising concerns of possible fecal impaction or other etiologies. Upon examination in the emergency department,
it was noted that the mass measured over four centimeters. The white blood cell count was normal, and the patient was afebrile. The evaluation was conducted with the input of Dr. Duke, who agreed to arrange outpatient management.
DISPOSITION
Discharge.
ASSESSMENT
Concern for fecal impaction or other large mass given palpable anal mass over four centimeters.
PLAN
The plan includes arranging outpatient management and scheduling a follow-up for potential procedures. She will hold her antiplatelet medications prior to any surgical intervention.
MANAGEMENT OF THE PATIENTS CARE WAS DISCUSSED WITH
Discussion held with Dr. Duke who provided bedside evaluation and will facilitate outpatient management.
PATIENT EDUCATION AND COUNSELING
Family ([id number]) was informed about the situation and involved in the discussion regarding outpatient management and holding antiplatelet medications prior to surgery.
MEDICAL DECISION MAKING
Number and Complexity of Problems Addressed: Chronic conditions affecting care which include stroke history with aphasia and right-sided weakness, recent urinary tract infections, and the current differential diagnosis list�fecal impaction,
constipation, diverticulitis, colorectal cancer, bowel obstruction, urinary tract infection, gastroenteritis, irritable bowel syndrome, ischemic colitis, and hemorrhoids.
Data:
Category 2
- The lenmmidl-bz-hxq served as an independent historian to provide additional context and information regarding the patients health and management plans.
Category 3
- Discussion of management with Dr. Duke regarding the palpable anal mass and subsequent outpatient care arrangements.
Risk:
Prescription medication was prescribed, and the patient was advised to hold her antiplatelet medications prior to surgical intervention. Consideration of Admission/Observation: Escalation of care including admission/observation was considered given
the complexity and risk of the patients presenting complaint, exam findings, and/or their underlying comorbidities. However, ultimately I feel the patient is safe for outpatient management with close follow-up. Reasoning: Work-up reassuring, does
not reveal any acute life/organ-threatening processes, patients symptoms well controlled upon reevaluation, reexamination is reassuring, vitals are stable, patient agreeable with discharge, reliable for follow-up.
DIAGNOSIS
- Anal mass
Past History
Past History
ED Past Medical History: CVA (with right sided weakness and Expressive Aphasia), HTN, Hypercholesterolemia and NIDDM
ED Past Surgical History: Cardiac (Stents X 3) and (X 4)
Social History
Tobacco: Former smoker
Alcohol: None
Personal:
Living: with family
Phy Exam
Physical Exam
Physical Exam:
See HPI
Course
Orders/Labs/Results
Orders:
Orders
12/18/24 13:18
Electrocardiogram (*1) Urgent
Reason for Study: Abdominal Pain
EKG- Treatment ONCE
12/18/24 15:45
CT Abd/pelvis W Iv Cont Urgent
Comment:
Reason For Exam: abd pain; more on R?, limited history, R anal mass
Straight cath- Treatment ONCE
12/18/24 16:35
Urinalysis Reflex To Culture Urgent
Date Specimen was Collected: 12/18/24
Time Specimen was Collected: 16:31
Urine Microscopic Reflex Cult Urgent
12/18/24 16:56
Complete Blood Count/With Diff Urgent
Troponin I Urgent
12/18/24 17:35
Comprehensive Metabolic Panel Urgent
Abnormal Lab Results
12/18/24 12/18/24 12/18/24
16:35 16:56 17:35
WBC 4.1 L 10^3/uL
(4.8-10.8)
RBC 3.59 L 10^6/uL
(4.20-5.40)
Hgb 11.2 L g/dL
(12.0-16.0)
Hct 35.4 L %
(37.0-47.0)
MCH 31.2 H pg
(27.0-31.0)
MCHC 31.6 L g/dL
(33.0-37.0)
MPV 11.8 H fL
(7.4-10.4)
Glucose 130 H mg/dl
(70-99)
Ur Occult Blood Reflex 1+ A
(Negative)
Urine Glucose 2+ A
(Negative)
Urine Albumin (Reflex) 3+ A
(Neg - Trace)
12/18/24 16:56
12/18/24 17:35
Vital Signs
Initial and Last Documented VS:
Initial Vital Signs
Temp Pulse Resp BP Pulse Ox
36.6 C 69 18 166/50 98
12/18/24 13:13 12/18/24 13:13 12/18/24 13:13 12/18/24 13:13 12/18/24 13:13
Last Documented Vital Signs
Temp Pulse Resp BP Pulse Ox
36.6 C 68 20 157/63 98
12/18/24 13:13 12/18/24 18:30 12/18/24 18:30 12/18/24 18:00 12/18/24 16:30
*Pulse Oximetry
SaO2: 98
Oxygen Mode of Delivery: Room air
Patient hypoxic: no
*Critical Care Note
Total Time (30-74mins, 75-104mins- exclusive of procedures): Not Applicable
ED Attending Note
-
Portions of this chart may have been created with voice recognition software.� Occasional wrong word or��sound alike� substitutions may have occurred due to the inherent limitations of voice recognition software.
Discharge Plan
Departure
Patient Disposition: Home (Routine Discharge)
Date of Disposition: 12/18/24
Time of Disposition: 20:08
Patient with high blood pressure during this ER visit?: Yes
Discharge Problem:
Mass of anus
Instructions: BLOOD PRESSURE
Prescriptions:
No Action
lamotrigine [Lamictal] 150 MG tablet
150 mg PO DAILY
clonazepam 0.5 MG tablet
0.5 mg PO BID
atenolol 25 MG tablet
25 mg PO NOON
clopidogrel 75 MG tablet
75 mg PO DAILY
simvastatin 80 MG tablet
80 mg PO HS
ferrous sulfate [FeroSul] 325 MG tablet
325 mg PO NOON
gabapentin 300 MG capsule
300 mg PO TID
omeprazole 20 MG capsule,delayed release(DR/EC)
20 mg PO QPM
aspirin 81 MG tablet,chewable
81 mg PO NOON
docosahexaenoic acid-epa 1 CAP capsule
1 cap PO NOON
metformin 1,000 mg tablet
1,000 mg PO BID@0700,1800
sertraline 25 mg tablet
25 mg PO NOON
Immune Support 250-12.5 mg Tablet,Chewable
1 tab PO QPM
methenamine hippurate [Hiprex] 1 gram Tablet
1 g PO DAILY
Referrals:
Gerard Duke MD [Active, [facility]Rectal]
Kameron Garibay DO [Family Provider, Family Practice]
Activity Restrictions/Additional Instructions:
The CAT scan shows a mass at the anus. There is concern for the possibility of cancer. This measures 4.6 cm. I therefore contacted Dr. Duke. He evaluated you at bedside. He recommends biopsy. Someone from his office should be calling you to
arrange follow-up. Return here if worse or other concerns.
Interventions
Interventions:
*Risk Screen - Suicide Last Done: 12/18/24 16:35
*General Assessment Last Done: 12/18/24 16:35
*Neglect/Abuse Screening Last Done: 12/18/24 16:35
*ED- Fall Risk Assessment Last Done: 12/18/24 16:35
*ED COVID-19 Vaccine History Last Done: 12/18/24 16:35
WC-Rqvwzc-Blptemznak Assessment Last Done: 12/18/24 16:33
Discharge Date and Time
Print Language: OMANI
[2024-12-18 16:23] VITALS: BP 122/58
[2024-12-18 16:32] VITALS: BMI 36.1
[2024-12-18 17:00] LABS: Urine Character Clear (Clear)
[2024-12-18 17:22] LABS: Hematocrit 35.4 % (37.0-47.0); Hemoglobin 11.2 g/dL (12.0-16.0); Mean Corp Hgb Conc. 31.6 g/dL (33.0-37.0); Mean Corpuscular Volume 98.6 fL (81.0-99.0); Nucleated Red Blood Cells % 0 %; Platelet Count 146 10^3/uL (130-400); Red Cell Dist. Width 14.2 % (11.5-14.5)
[2024-12-18 17:26] LABS: Troponin I < 0.012 ng/ml
[2024-12-18 17:35] VITALS: BP 157/63
[2024-12-18 17:37] LABS: Urine Red Blood Cell 0-2 /HPF (0-2); Urine Squamous Cell 0-2 /LPF (Few); Urine White Cell 0-2 /HPF (0-5)
[2024-12-18 18:00] VITALS: BP 135/76; BP 157/63
[2024-12-18 18:00] LABS: ALT (SGPT) 17 U/L (0-35); AST (SGOT) 31 U/L (14-36); Alkaline Phosphatase 56 U/L (38-126); Carbon Dioxide 29 mmol/L (22-30); Estimated Creatinine Clearance 67 ml/min; Glucose 130 mg/dl (70-99); eGFR > 60.00
[2024-12-18 18:09] LABS: Albumin 3.6 g/dl (3.5-5.0); Blood Urea Nitrogen 17 mg/dl (7-17); Calcium 9.9 mg/dl (8.4-10.2); Total Protein 7.0 g/dl (6.3-8.2)
[2024-12-18 18:20] LABS: Chloride 107 mmol/L (98-107); Potassium 4.1 mmol/L (3.5-5.1); Sodium 139 mmol/L (135-145)
[2024-12-18 19:00] VITALS: BP 149/69
[2024-12-18 20:01] VITALS: BP 129/55
--- NOTE | 2024-12-18 20:12 | CON.CRS ---
Medical History
-
History of Present Illness:
Patient is a 74-year-old female with PMH of CVA 2007 (residual right-sided hemiparesis and aphasia; able to shake her head yes and no, but not able to verbally communicate), CAD's s/p stents 2007 on aspirin/Plavix (last dose this a.m.), HTN, HLD,
bipolar, anxiety/depression, DM, anemia, cirrhosis, kidney stones and chronic UTI who presented to the ED for worsening abdominal versus perianal pain. The [id number]-ce-jxi is present and assisted with communication and history. She states that she
always has intermittent abdominal pains. 2 to 3 months ago, she was impacted and was started on MiraLAX. She has daily BMs now without further issues of impaction or constipation. She noticed that this anal pain had been worsening. It is
specifically worse when she tries to pass a BM. Denies any recent weight loss, fevers, CP/SOB or hematochezia. She does have a chronic cough. She has never had a colonoscopy.
Past Medical History
Past Medical History: Other (As above)
Past Surgical History: Other ( x 4, ureteral stent)
Social History
Tobacco: Former Smoker (Quit 2007)
Alcohol: None
Drug: None
Living: With Family
Employment: Disabled
Family History
Family History: Other (Denies family history of CRC)
Allergies / Home Medications
Allergy/AdvReac Type Severity Reaction Status Date / Time
No Known Allergies Allergy Verified 06/23/23 17:39
�Medication �Instructions �Recorded �Confirmed �Type
aspirin 81 mg chewable tablet 81 mg PO NOON Blood clot 04/22/21 06/23/23 History
prevention/tx
atenolol 25 mg tablet 25 mg PO NOON Blood pressure 04/22/21 06/23/23 History
clonazepam 0.5 mg tablet 0.5 mg PO BID Mental Health/Anxiety 04/22/21 06/23/23 History
clopidogrel 75 mg tablet 75 mg PO DAILY Blood clot 04/22/21 06/23/23 History
prevention/tx
docosahexaenoic acid (dha)-epa 120 1 cap PO NOON Supplement 04/22/21 06/23/23 History
mg-180 mg capsule
ferrous sulfate 325 mg (65 mg 325 mg PO NOON Supplement 04/22/21 06/23/23 History
iron) tablet (FeroSul)
gabapentin 300 mg capsule 300 mg PO TID Mental Health/Anxiety 04/22/21 06/23/23 History
lamotrigine 150 mg tablet 150 mg PO DAILY Mental 04/22/21 06/23/23 History
(Lamictal) Health/Anxiety
omeprazole 20 mg capsule,delayed 20 mg PO QPM Gastrointestinal issue 04/22/21 06/23/23 History
release
simvastatin 80 mg tablet 80 mg PO HS High cholesterol 04/22/21 06/23/23 History
metformin 1,000 mg tablet 1,000 mg PO BID@0700,1800 Diabetes 01/05/23 06/23/23 History
mv-min-vit C 250 wj-bbruzy-thynh 1 tab PO QPM Supplement 01/05/23 06/23/23 History
HCl-herb 124 12.5 mg chewable
tablet (Immune Support)
sertraline 25 mg tablet 25 mg PO NOON Mental Health/Anxiety 01/05/23 06/23/23 History
methenamine hippurate 1 gram 1 g PO DAILY Infection 06/23/23 06/23/23 History
tablet (Hiprex)
Review of Systems
-
A 10 point review of systems was completed, and was negative except as per HPI.
Physical Exam
Vital Signs
Temp 97.9 F 12/18/24 13:13
Pulse 68 12/18/24 18:30
Resp Rate 20 12/18/24 18:30
Blood pressure 157/63 12/18/24 18:00
SaO2 98 12/18/24 16:30
12/17/24 12/18/24 12/19/24
06:59 06:59 06:59
Actual Weight 75.5 kg
Body Mass Index (BMI) 36.1
Lab Results / Allergies
12/18/24 16:56
12/18/24 17:35
WBC 4.1 10^3/uL (4.8-10.8) L 12/18/24 16:56
Hgb 11.2 g/dL (12.0-16.0) L 12/18/24 16:56
Hct 35.4 % (37.0-47.0) L 12/18/24 16:56
Plt Count 146 10^3/uL (130-400) 12/18/24 16:56
Abs Immat Gran (auto) 0.0 10^3/uL (0-0.05) 12/18/24 16:56
Neutrophils % 54.9 % (42.2-75.2) 12/18/24 16:56
Allergy/AdvReac Type Severity Reaction Status Date / Time
No Known Allergies Allergy Verified 06/23/23 17:39
Physical Exam
General: Well Developed, Well Nourished and No Apparent Distress
HEENT: Normocephalic and Atraumatic
Respiratory: Non Labored Respirations
Cardiac: S1/S2
GI: Soft, Non Tender and Non Distended
Rectal: Other (External-multiple pendulous skin tags; CRISTOBAL-palpable mass in the right lateral position extending from the anal verge to 5 cm proximal from the AV; mass is hard and fixed, somewhat tender; no other palpable abnormalities)
Skin: Warm and Dry
Neuro: Alert, Oriented and Other (Right sided facial droop)
Data Reviewed
-
CT Scan: Image Personally Visualized and interpreted, Discussed with Physician (Radiology and ED physician), Discussed with Nurse, Discussed with Patient and Discussed with Family
Labs: Labs Reviewed by me, Discussed with Patient and Discussed with Family
Assessment / Plan
-
Patient is a 74-year-old female with PMH of CVA 2007 (residual right-sided hemiparesis and aphasia; able to shake her head yes and no, but not able to verbally communicate), CAD's s/p stents 2007 on aspirin/Plavix (last dose this a.m.), HTN, HLD,
bipolar, anxiety/depression, DM, anemia, cirrhosis, kidney stones and chronic UTI who presented to the ED for worsening abdominal versus perianal pain. The cmkphuem-bq-lrk is present and assisted with communication and history. She states that she
always has intermittent abdominal pains. 2 to 3 months ago, she was impacted and was started on MiraLAX. She has daily BMs now without further issues of impaction or constipation. She noticed that this anal pain had been worsening. It is
specifically worse when she tries to pass a BM. Denies any recent weight loss, fevers, CP/SOB or hematochezia. She does have a chronic cough. She has never had a colonoscopy.
AFVSS
WBC 4.1
� CT shows 4.6 cm right sided anal mass most concerning for anal carcinoma, phlegmon/abscess would be less likely; enlarged centrally necrotic right inguinal lymph node concerning for ismael met
�I have no clinical concerns for abscess at this time; I am mostly concerned for a mass, which would require biopsy to confirm whether it is a cancer; due to her recent Plavix, undergoing EUA with biopsy within the next 5 days would have elevated
bleeding risk and I suspect that this issue has been ongoing for a long time; therefore, I recommend undergoing EUA with biopsy as an outpatient with an appropriate plavix washout to minimize the risk of postoperative bleeding; this can be arranged
as an outpatient through my office
�Continue regular diet and MiraLAX daily to prevent constipation as blockage does remain a risk, which I explained to the patient and wikmwayt-wz-ens
�Discussed with Dr. Cruz; no other indications for admission at this time; from my standpoint, okay for discharge with pain control
== END 2024-12-18 21:42 | disposition home or self-care (01) ==
LOC: EMR 13:12
PROVIDERS: Student in an Organized Health Care Education/Training Program; EMERGENCY PHYSICIAN Emergency Medicine; FAMILY PHYSICIAN Family Medicine
DX: K62.89 Other specified diseases of anus and rectum (principal); E11.9 Type 2 diabetes mellitus without complications; I10 Essential (primary) hypertension; E78.00 Pure hypercholesterolemia, unspecified; I69.320 Aphasia following cerebral infarction; I69.351 Hemiplegia and hemiparesis following cerebral infarction affecting right dominant side; F31.9 Bipolar disorder, unspecified; F41.9 Anxiety disorder, unspecified; Z79.02 Long term (current) use of antithrombotics/antiplatelets; Z79.82 Long term (current) use of aspirin; Z79.84 Long term (current) use of oral hypoglycemic drugs; Z95.5 Presence of coronary angioplasty implant and graft; Z87.891 Personal history of nicotine dependence; Z87.440 Personal history of urinary (tract) infections
CPT/HCPCS: 99284; 74177; 80053; 81003; 81015; 84484; 85025; 93005; Q9967

== ENCOUNTER 2024-12-28 06:06 | Day surgery (SDC) | payer OTHER, SELFPAY ==
[2024-12-28 06:54] LABS: Glucose - Point of Care 141 mg/dl (70-99)
[2024-12-28 07:03] VITALS: BP 162/62
[2024-12-28] MEDS: NORMOSOL-R/PLASMALYTE-A 1000 IV (07:04)
[2024-12-28 07:19] VITALS: BMI 38.7
[2024-12-28 08:15] VITALS: BP 127/45
--- NOTE | 2024-12-28 08:28 | W.IMMPOSTOP ---
Addendum entered and electronically signed by Gerard Duke MD 12/28/24 09:58:
updated family (including daughter and [id number]) over the phone
Original Note:
Surgical Immed Post Op Note
-
Primary Surgeon: Gerard Duke MD
Assisting Surgeon: OCTAVIA Mathew
Pre-op Diagnosis: Anal mass
Post-op Diagnosis: Anal mass
Procedure Performed: Flexible sigmoidoscopy, exam under anesthesia, biopsy of anal mass
Anesthesia Type: Sedation with local
Specimen / Cultures: Anal mass biopsies
Estimated Blood Loss: 5 mL
Complications: None
Operative Findings: Palpable firm and mobile anal mass in the right anterior quadrant, extending from the anal verge to about 4.5 cm proximally, taking up to about 33% of the circumference of the anal canal; on flexible sigmoidoscopy, no significant
intrusion into the rectum, but there is heaping up of the distal rectum
[2024-12-28 08:30] VITALS: BP 145/47
[2024-12-28 08:34] LABS: Glucose - Point of Care 140 mg/dl (70-99)
--- NOTE | 2024-12-28 08:38 | OR.RPT ---
Operative Report
Operative Report
DATE OF OPERATION: 12/28/2024
SURGEON: Gerard Duke MD
PREOPERATIVE DIAGNOSIS: Anal mass
POSTOPERATIVE DIAGNOSIS: Anal mass
OPERATION: Flexible sigmoidoscopy, exam under anesthesia, Kai-cut anal mass biopsy
ASSISTANTS:
1. OCTAVIA Mathew
ANESTHESIA: Sedation with local
ESTIMATED BLOOD LOSS: 5 mL
FINDINGS:
1. On flexible sigmoidoscopy, extrinsic intrusion on the distal rectum with no invasive mass seen
2. On EUA, firm, immobile 4.5 cm anal mass in the right anterior quadrant extending proximally from the anal verge, encompassing 33% of the circumference of the anal canal
SPECIMENS:
1. Anal mass biopsies
DRAINS: N/A
COMPLICATIONS: None
INDICATIONS: The patient is a 74-year-old female who presented to the [facility] ED due to anal pain. Per family, this pain has been ongoing for many months, if not more than a year. A CT scan was done showing a 4.6 cm right sided anal mass
concerning for carcinoma. Therefore, the patient was recommended to have surgery for evaluation and diagnostic purposes. The patient has aphasia and the medical power of [place] attorney is her daughter. The operation was discussed with the patient and
patient's daughter in detail, including the risks, benefits and alternatives. Risks described included, but not limited to bloating, missed lesion, perforation, bleeding, infection, urinary retention, sample error and anesthetic risks. They
understood and agreed to proceed. The consent was signed by the daughter and placed in the chart.
PROCEDURE IN DETAIL: The patient was taken to the operating room. Sequential compression devices were placed bilaterally. Due to the patient's medical comorbidities, prone position was not an option. Due to the patient's contracted right sided
extremities, lithotomy was also not an option. Therefore, the patient was placed in left lateral decubitus, placing pillows and padding on the pressure points and in between the legs. A seatbelt was placed over the abdomen. Sedation was commenced
without complication. A time-out was performed verifying the correct patient, procedure, operative site, positioning, and special equipment.
I began with flexible sigmoidoscopy. A digital rectal exam was performed. There was a firm and immobile anal mass in the right anterior quadrant extending from the anal verge to about 4.5 cm proximally. The lubricated sigmoidoscope was inserted
transanally and advanced under direct visualization. I was able to advance to the rectosigmoid junction. I slowly advanced. There were no concerning mucosal abnormalities seen. Retroflexion was performed in the rectum. An extrinsic intrusion
was seen into the distal rectum, but no obvious invasive mass was seen. The sigmoidoscope was removed.
The right buttock was taped. The perineum was prepped and draped in the usual fashion. Local anesthesia used was a mixture of 30 mL of 0.25% Marcaine with epinephrine, 30mL of 1% lidocaine plain and 0.6 mg of dexamethasone. 40 mL was injected
perianally at the beginning of the case. The anorectal exam was performed assessing all four quadrants of the anal canal using Hill-Shell retractors in progressively increasing size. The anal mass in the right anterior position was encompassing
about 33% of the circumference of the anal canal. I performed multiple full-thickness Kai�cut biopsies of the mass. The remainder of the anal canal was without pathology. There was no proctitis.
The remaining 20 mL of local were injected perianally. Hemostasis was reassessed once more using the small Hill-Shell and was confirmed. At this point, the procedure was complete. All needle, sponge and instrument counts were correct. The patient
tolerated the procedure well and was transferred to the recovery room in stable condition with gauze dressing in place secured with silk tape.
Of note, OCTAVIA Mathew, trust administrative assistant, was necessary during this procedure for traction, countertraction, and exploratory purposes. I was present for the entire duration of the case.
DICTATED BY: Gerard Duke MD
[2024-12-28 08:45] VITALS: BP 140/51
[2024-12-28 09:00] VITALS: BP 138/50
[2024-12-28 09:30] VITALS: BP 121/55
== END 2024-12-28 09:45 | disposition home or self-care (01) ==
LOC: SDS 06:06
PROVIDERS: ATTENDING PHYSICIAN Surgery
DX: C21.0 Malignant neoplasm of anus, unspecified (principal); R47.01 Aphasia
CPT/HCPCS: 45100; 45330; 82962; 88305; 88341; 88342

== ENCOUNTER → 2025-01-23 11:52 | Outpatient (REF) | payer OTHER, SELFPAY | LOC: MRI 11:52 | PROVIDERS: ATTENDING PHYSICIAN Surgery; FAMILY PHYSICIAN Family Medicine | DX: C21.0 Malignant neoplasm of anus, unspecified (principal) | CPT/HCPCS: 72197; A9575 ==

== ENCOUNTER → 2025-01-25 07:27 | Outpatient (REF) | payer OTHER, SELFPAY | LOC: RAD 07:27 | PROVIDERS: ATTENDING PHYSICIAN Surgery; PRIMARYCARE PHYSICIAN Family Medicine | DX: C21.0 Malignant neoplasm of anus, unspecified (principal) | CPT/HCPCS: 71270; Q9967 ==